=== PATIENT | male | born 1995 | race Caucasian/White ===

== ENCOUNTER 2016-12-03 02:37 | Inpatient (IN) | payer OTHER, BC ==
[~2016-12-03] VITALS: Ht 177.8 cm; Wt 102.5 kg
[2016-12-03 02:41] VITALS: BP 130/80; PULSE 80; RESP 16; TEMP 98.5; O2SAT 98
[2016-12-03] MEDS ORDERED: ceFAZolin 2 GM PREMIX 50 ML IV ONE (03:00)
[2016-12-03] MEDS ORDERED: ONDANSETRON HCL 4 MG/2 ML VIAL IV ONE (03:00)
[2016-12-03] MEDS ORDERED: SODIUM CHLOR 0.9% 1000 ML INJ 1,000 ML IV ONE ×2 (03:00→06:00)
[2016-12-03] MEDS ORDERED: MORPHINE SULFATE 4 MG/ML INJ IV PUSH ONE (03:00)
[2016-12-03] MEDS ORDERED: GENTAMICIN 80 MG PREMIX 100 ML IV ONE (03:00)
[2016-12-03] MEDS ORDERED: HYDROmorphone HCL PF 1 MG/ML VIAL IVS ONE ×3 (03:15→05:45)
[2016-12-03 03:19] LABS: AUTOMATED NEUTROPHIL # 5.9 TH/MM3 (1.8-7.7); BASOPHIL # 0.1 TH/MM3 (0-0.2); BASOPHIL % 0.5 % (0.0-2.0); EOSINOPHIL # 0.1 TH/MM3 (0-0.4); EOSINOPHIL % 1.1 % (0.0-4.0); HEMATOCRIT 43.9 % (39.0-51.0); HEMO FLAGS DIFF FINAL; LYMPH % 41.4 % (9.0-44.0); MEAN CELL VOLUME 88.2 FL (80.0-100.0); MEAN CORPUSCULAR HEMOGLOBIN 30.4 PG (27.0-34.0); MEAN CORPUSCULAR HGB CONC 34.4 % (32.0-36.0); MONO % 8.1 % (0.0-8.0); NEUT % 48.9 % (16.0-70.0); PLATELET COUNT 318 TH/MM3 (150-450); RED BLOOD COUNT 4.98 MIL/MM3 (4.50-5.90); WHITE BLOOD COUNT 12.2 TH/MM3 (4.0-11.0)
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
[2016-12-03 03:32] LABS: APTT (PATIENT) 23.2 SEC (24.3-30.1); PROTHROMBIN TIME - PATIENT 10.8 SEC (9.8-11.6)
[2016-12-03 03:45] LABS: ALKALINE PHOSPHATASE 93 U/L (45-117); TOTAL BILIRUBIN ADULT 0.3 MG/DL (0.2-1.0)
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
[2016-12-03 04:09] LABS: ALT (GPT) 70 U/L (9-52); ANION GAP 12 MEQ/L (5-15); AST (GOT) 78 U/L (15-39); BICARBONATE 20.8 MEQ/L (21.0-32.0); BLOOD UREA NITROGEN 12 MG/DL (7-18); CHLORIDE 106 MEQ/L (98-107); GLOMERULAR FILTRATION RATE 84 ML/MIN (>89); SODIUM (NA) 139 MEQ/L (136-145)
[2016-12-03 04:10] LABS: POTASSIUM 5.1 MEQ/L (3.5-5.1)
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
[2016-12-03] MEDS ORDERED: SODIUM CHLOR 0.9% 1000 ML INJ 1,000 ML IV SCH (06:00)
[2016-12-03] MEDS ORDERED: ONDANSETRON HCL 4 MG/2 ML VIAL IVP PRN (07:00)
[2016-12-03] MEDS ORDERED: BISACODYL 10 MG SUPP RECTAL PRN (07:00)
[2016-12-03] MEDS ORDERED: ACETAMINOPHEN 325 MG TAB PO PRN (07:00)
[2016-12-03] MEDS ORDERED: SODIUM CHLORIDE 0.9% FLUSH 10 ML FLUSH IV FLUSH PRN ×2 (07:00→12:30)
[2016-12-03 08:08] VITALS: BP 140/81; PULSE 93; RESP 18; O2SAT 97
[2016-12-03] MEDS: SODIUM CHLOR 0.9% 1000 ML INJ 1,000 ML IV SCH ×3 (08:08→21:43)
[2016-12-03] MEDS: HYDROmorphone HCL PF 1 MG/ML VIAL IV PRN ×2 (08:08→15:27)
[2016-12-03] MEDS: DOCUSATE SODIUM 50 MG/SENNA 8.6 MG TAB PO SCH ×2 (09:00→21:40)
[2016-12-03] MEDS ORDERED: SODIUM CHLORIDE 0.9% FLUSH 10 ML FLUSH IV FLUSH SCH (09:00)
[2016-12-03] MEDS ORDERED: ACETAMINOPHEN 1000 MG/100 ML VIAL IV ONE (09:29)
[2016-12-03] MEDS ORDERED: MIDAZOLAM HCL 2 MG/2 ML VIAL ONE (09:33)
[2016-12-03] MEDS ORDERED: PANTOPRAZOLE SODIUM 40 MG VIAL ONE (09:34)
[2016-12-03] MEDS ORDERED: NEOMYCIN/POLYMYXIN 1 ML G.U. IRRIGANT TOPICAL ONE (09:45)
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
[2016-12-03] MEDS ORDERED: HYDROmorphone HCL PF 2 MG/ML VIAL ONE (10:04)
[2016-12-03] MEDS ORDERED: LACTATED RINGER'S 1000 ML INJ 1,000 ML IV ONE (10:23)
[2016-12-03] MEDS ORDERED: ONDANSETRON HCL 4 MG/2 ML VIAL IV PUSH ONE (10:23)
[2016-12-03] MEDS ORDERED: PHENYLEPH/NS 1000 MCG/10 ML SYR IV ONE (10:23)
[2016-12-03] MEDS ORDERED: PROPOFOL 200 MG/20 ML AMP IV ONE (10:23)
[2016-12-03] MEDS ORDERED: HEPARIN SODIUM - SQ 10,000 UNITS/ML VIAL ONE (11:07)
[2016-12-03] MEDS: ceFAZolin 2 GM PREMIX 50 ML IV SCH ×2 (12:30→21:39)
[2016-12-03] MEDS ORDERED: fentaNYL CITRATE 250 MCG/5 ML AMP ONE (12:37)
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
[2016-12-03] MEDS: GENTAMICIN 80 MG PREMIX 100 ML IV SCH ×2 (13:30→22:21)
[2016-12-03] MEDS ORDERED: DO NOT ADM ANY ANTICOAGULANT DRUGS PRN (14:00)
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
[2016-12-03] MEDS ORDERED: *morphine SULFATE 8 MG/ML PERIprocedure ONLY ONE (14:17)
[2016-12-03 16:00] VITALS: BP 165/99; PULSE 102; RESP 16; TEMP 96.8; O2SAT 93
[2016-12-03 16:20] VITALS: O2SAT 94
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
[2016-12-03] MEDS ORDERED: NALOXONE HCL 0.4 MG/ML AMP IV PRN (17:00)
[2016-12-03] MEDS ORDERED: cloNIDine HCL 0.1 MG TAB PO PRN (17:15)
[2016-12-03] MEDS: MORPHINE SULFATE 30 MG/30 ML PCA IV SCH ×2 (17:58→22:17)
[2016-12-03 19:00] VITALS: BP 131/83; PULSE 115; RESP 18; TEMP 98.2; O2SAT 95
[2016-12-03] MEDS: SODIUM CHLORIDE 0.9% FLUSH 10 ML FLUSH IV FLUSH SCH (21:00)
[2016-12-03] MEDS: PCA - TOTAL MG MORPHINE DELIVERED PER SHIFT SCH (22:00)
[2016-12-04] VITALS (10 sets, daily range): BP systolic 127–140; BP diastolic 63–75; PULSE 102–118; RESP 16–18; TEMP 98–99; O2SAT 91–98
[2016-12-04] MEDS: ceFAZolin 2 GM PREMIX 50 ML IV SCH ×3 (05:04→21:03)
[2016-12-04] MEDS: GENTAMICIN 80 MG PREMIX 100 ML IV SCH ×3 (05:56→21:05)
[2016-12-04] MEDS: PCA - TOTAL MG MORPHINE DELIVERED PER SHIFT SCH ×3 (06:00→21:04)
[2016-12-04 06:59] LABS: AUTOMATED NEUTROPHIL # 5.8 TH/MM3 (1.8-7.7); BASOPHIL % 0.2 % (0.0-2.0); EOSINOPHIL % 0.1 % (0.0-4.0); HEMATOCRIT 41.8 % (39.0-51.0); HEMO FLAGS DIFF FINAL; LYMPH % 19.7 % (9.0-44.0); LYMPHOCYTE # 1.7 TH/MM3 (1.0-4.8); MEAN CELL VOLUME 89.2 FL (80.0-100.0); MEAN CORPUSCULAR HGB CONC 33.6 % (32.0-36.0); MONO % 12.2 % (0.0-8.0); NEUT % 67.8 % (16.0-70.0); PLATELET COUNT 260 TH/MM3 (150-450); RED BLOOD COUNT 4.69 MIL/MM3 (4.50-5.90); RED CELL DISTRIBUTION WIDTH 12.9 % (11.6-17.2); WHITE BLOOD COUNT 8.5 TH/MM3 (4.0-11.0)
[2016-12-04 07:31] LABS: ALKALINE PHOSPHATASE 91 U/L (45-117); ALT (GPT) 40 U/L (9-52); ANION GAP 6 MEQ/L (5-15); AST (GOT) 30 U/L (15-39); BICARBONATE 28.8 MEQ/L (21.0-32.0); BLOOD UREA NITROGEN 8 MG/DL (7-18); CHLORIDE 102 MEQ/L (98-107); GLOMERULAR FILTRATION RATE 96 ML/MIN (>89); SODIUM (NA) 137 MEQ/L (136-145); TOTAL BILIRUBIN ADULT 0.4 MG/DL (0.2-1.0)
[2016-12-04] MEDS: SODIUM CHLORIDE 0.9% FLUSH 10 ML FLUSH IV FLUSH SCH ×2 (08:01→21:00)
[2016-12-04] MEDS: DOCUSATE SODIUM 50 MG/SENNA 8.6 MG TAB PO SCH ×2 (08:04→21:03)
[2016-12-04] MEDS: MORPHINE SULFATE 30 MG/30 ML PCA IV SCH ×4 (08:04→22:40)
--- NOTE | 2016-12-04 08:57 | PD.POD ---
Subjective Pain score: 7 Remarks left foot pain is controlled by meds patient understands plan and progress. Past Med/Surg/Social History Social History Smoking Status: Never Smoker Objective Vital Signs Vital Signs Date Time Temp Pulse Resp B/P Pulse Ox O2 Delivery O2 Flow Rate FiO2 12/04/16 08:04 17 12/04/16 06:00 18 12/04/16 04:00 98.5 106 18 128/74 95 12/04/16 00:00 98.2 102 17 127/63 93 12/03/16 22:23 18 12/03/16 22:17 18 12/03/16 22:00 18 12/03/16 21:12 21 12/03/16 19:00 98.2 115 18 131/83 95 12/03/16 17:58 22 12/03/16 16:20 94 21 12/03/16 16:00 96.8 102 16 165/99 93 12/03/16 15:15 87 18 161/88 94 Nasal Cannula 3 12/03/16 13:15 94 18 151/90 94 Nasal Cannula 3 12/03/16 13:00 95 18 141/86 95 Nasal Cannula 3 12/03/16 12:45 93 18 135/74 94 Nasal Cannula 3 12/03/16 12:30 99.0 108 18 122/85 94 Nasal Cannula 3 Coded Allergies: No Known Allergies (Unverified , 12/03/16) Medications and IVs Administered Medications Medications (Trade) Dose Ordered Sig/Markel Route PRN Reason Start Time Stop Time Status Last Admin Dose Admin Sodium Chloride (NS 1000 ml Inj) 1,000 ml @ 100 mls/hr Q10H IV 12/03/16 08:00 12/03/16 21:43 Hydromorphone HCl (Dilaudid Pf Inj) 1 mg Q3H PRN IV Pain 6-10 12/03/16 07:00 Hold 12/03/16 15:27 Senna/Docusate Sodium 1 tab 1 tab BID PO 12/03/16 09:00 12/04/16 08:04 Cefazolin Sodium/ Dextrose 50 ml @ 100 mls/hr Q8H IV 12/03/16 13:00 12/04/16 05:04 Gentamicin Sulfate/Sodium Chloride (Gentamicin 80 Mg Premix) 100 ml @ 200 mls/hr Q8H IV 12/03/16 14:00 12/04/16 05:56 Morphine Sulfate (Morphine 1 Mg/ ml RAILWAY SIGNAL OPERATOR) 30 mg UNSCH IV 12/03/16 17:00 12/04/16 08:04 RAILWAY SIGNAL OPERATOR Dosage Infused (Pha) 1 Q8HR .XX 12/03/16 22:00 12/04/16 06:00 Other Results Laboratory Tests Test 12/03/16 12/04/16 03:06 06:42 White Blood Count 12.2 TH/MM3 8.5 TH/MM3 Red Blood Count 4.98 MIL/MM3 4.69 MIL/MM3 Hemoglobin 15.1 GM/DL 14.0 GM/DL Hematocrit 43.9 % 41.8 % Mean Corpuscular Volume 88.2 FL 89.2 FL Mean Corpuscular Hemoglobin 30.4 PG 30.0 PG Mean Corpuscular Hemoglobin 34.4 % 33.6 % Concent Red Cell Distribution Width 13.0 % 12.9 % Platelet Count 318 TH/MM3 260 TH/MM3 Mean Platelet Volume 7.1 FL 6.3 FL Neutrophils (%) (Auto) 48.9 % 67.8 % Lymphocytes (%) (Auto) 41.4 % 19.7 % Monocytes (%) (Auto) 8.1 % 12.2 % Eosinophils (%) (Auto) 1.1 % 0.1 % Basophils (%) (Auto) 0.5 % 0.2 % Neutrophils # (Auto) 5.9 TH/MM3 5.8 TH/MM3 Lymphocytes # (Auto) 5.0 TH/MM3 1.7 TH/MM3 Monocytes # (Auto) 1.0 TH/MM3 1.0 TH/MM3 Eosinophils # (Auto) 0.1 TH/MM3 0.0 TH/MM3 Basophils # (Auto) 0.1 TH/MM3 0.0 TH/MM3 CBC Comment DIFF FINAL DIFF FINAL Differential Comment Laboratory Tests Test 12/03/16 12/04/16 03:06 06:42 Sodium Level 139 MEQ/L 137 MEQ/L Potassium Level 5.1 MEQ/L 4.0 MEQ/L Chloride Level 106 MEQ/L 102 MEQ/L Carbon Dioxide Level 20.8 MEQ/L 28.8 MEQ/L Anion Gap 12 MEQ/L 6 MEQ/L Blood Urea Nitrogen 12 MG/DL 8 MG/DL Creatinine 1.12 MG/DL 0.99 MG/DL Estimat Glomerular Filtration 84 ML/MIN 96 ML/MIN Rate Random Glucose 108 MG/DL 113 MG/DL Calcium Level 8.3 MG/DL 8.6 MG/DL Total Bilirubin 0.3 MG/DL 0.4 MG/DL Aspartate Amino Transf 78 U/L 30 U/L (AST/SGOT) Alanine Aminotransferase 70 U/L 40 U/L (ALT/SGPT) Alkaline Phosphatase 93 U/L 91 U/L Total Protein 7.4 GM/DL 6.7 GM/DL Albumin 3.7 GM/DL 3.3 GM/DL Microbiology Date/Time Procedure Status Source Growth 12/03/16 12:30 Gram Stain Received Wound Foot Pending 12/03/16 12:30 Wound Culture Received Wound Foot Pending 12/03/16 12:30 Acid Fast Stain Received Wound Foot Pending 12/03/16 12:30 Mycobacterial Culture Received Wound Foot Pending 12/03/16 12:30 Fungal Smear Received Wound Foot Pending 12/03/16 12:30 Fungal Culture Received Wound Foot Pending Exam-Podiatry Remarks left foot ankle with splint bandage intact, wound vac in place, able to move toes, sensation intact to the top of the foot. Assessment & Plan A/P Left foot lisfranc midfoot open fracture dislocation with partial degloving. SP incision drainage debridement with helene of Ex Fix right foot, wound vac application. - 12/03 Plan for repeat above tomorrow. Reviewed plan with patient, must continue to washout and monitor healing. Foot salvage will be a long process. Continue IV ABX for now. Patient does not live here. Once foot is stable with forward progress and no signs of infection may possibly transfer care in 1-2 weeks, Jacqueline Mack is home. Hu Quevedo DPM Dec 04, 2016 08:57
--- NOTE | 2016-12-04 13:05 | HHI.PR ---
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 Objective Vitals Vital Signs Date Time Temp Pulse Resp B/P Pulse Ox O2 Delivery O2 Flow Rate FiO2 12/04/16 12:14 17 12/04/16 12:12 98 12/04/16 12:00 98.2 111 18 133/72 91 12/04/16 10:42 94 12/04/16 09:10 95 12/04/16 08:04 17 12/04/16 08:00 99.0 112 18 140/75 91 12/04/16 06:00 18 12/04/16 04:00 98.5 106 18 128/74 95 12/04/16 00:00 98.2 102 17 127/63 93 12/03/16 22:23 18 12/03/16 22:17 18 12/03/16 22:00 18 12/03/16 21:12 21 12/03/16 19:00 98.2 115 18 131/83 95 12/03/16 17:58 22 12/03/16 16:20 94 21 12/03/16 16:00 96.8 102 16 165/99 93 12/03/16 15:15 87 18 161/88 94 Nasal Cannula 3 12/03/16 13:15 94 18 151/90 94 Nasal Cannula 3 I/O 12/03/16 12/03/16 12/03/16 12/04/16 12/04/16 12/04/16 06:59 14:59 22:59 06:59 14:59 22:59 Intake Total 1300 ml 1251 ml 984 ml 494 ml Output Total 780 ml 1250 ml 875 ml 10 ml Balance 520 ml 1 ml 109 ml 484 ml Intake Oral 580 ml 480 ml IV Total 671 ml 504 ml 494 ml Other 1300 ml Output Urine Total 750 ml 1150 ml 800 ml Drainage Total 100 ml 75 ml 10 ml Estimated Blood Loss 30 ml Other 0 ml # Voids 1 1 # Bowel Movements 0 0 Result Diagram: 12/04/16 0642 12/04/16 0642 Imaging Last Impressions Lower Extremity CT 12/03/16 0000 Signed Impressions: Service Date/Time: Saturday, December 03, 2016 03:55 - CONCLUSION: 1. Multiple fractures, and extensive soft tissue injury with open fracture wound is at the dorsal aspect of the foot with associated foreign body retention. Ganesh Calvert MD Foot X-Ray 12/03/16 0000 Signed Impressions: Service Date/Time: Saturday, December 03, 2016 13:12 - CONCLUSION: Postsurgical changes. Rosa Andres MD Chest X-Ray 12/03/16 0000 Signed Impressions: Service Date/Time: Saturday, December 03, 2016 02:56 - CONCLUSION: No acute disease. Ganesh Calvert MD Objective Remarks GENERAL: NAD SKIN: Warm and dry. HEAD: Normocephalic. EYES: No scleral icterus. No injection or drainage. NECK: Supple, trachea midline. No JVD or lymphadenopathy. CARDIOVASCULAR: Regular rate and rhythm without murmurs, gallops, or rubs. RESPIRATORY: Breath sounds equal bilaterally. No accessory muscle use. GASTROINTESTINAL: Abdomen soft, non-tender, nondistended. MUSCULOSKELETAL: No cyanosis, or edema. Left lower extremity in cast with wound VAC in place BACK: Nontender without obvious deformity. No CVA tenderness. A/P Problem List: (1) Open fracture of left foot ICD Code: S92.902B Status: Acute Assessment and Plan 21 year-old man with Left foot open lisfranc fracture/dislocation with dorsal degloving injury and dorsalis pedis artery injury -s/p staged I&D with application of external fixation left foot and wound vac. - Continue on IV antibiotics, Cefazolin 2gm IV q8h and Gentamicin 80mg IV q8h. - Follow up on intraoperative wound cultures. 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
[2016-12-04] MEDS: SODIUM CHLOR 0.9% 1000 ML INJ 1,000 ML IV SCH ×2 (13:09→22:46)
[2016-12-05] VITALS (8 sets, daily range): BP systolic 108–156; BP diastolic 52–77; PULSE 58–122; RESP 16–20; TEMP 97–100.2; O2SAT 94–99
[2016-12-05] MEDS ORDERED: INSULIN HUMAN REGULAR 1,000 UNITS/10 ML VIAL SQ PRN (00:15)
[2016-12-05] MEDS ORDERED: METOPROLOL TARTRATE 25 MG TAB PO PRN (00:15)
[2016-12-05] MEDS ORDERED: CHLORHEXIDINE GLUCONATE 2 % 1 PACK (2 CLOTHS) TOPICAL PRN (00:15)
[2016-12-05] MEDS ORDERED: LACTATED RINGER'S 1000 ML IV PRN (00:15)
[2016-12-05] MEDS ORDERED: POVIDONE IODINE 5% (ANTISEPSIS KIT) 4 APPLICATIONS EACH NARE PRN (00:15)
[2016-12-05] MEDS ORDERED: SODIUM CHLORID 0.9% 500 ML IV PRN (00:15)
[2016-12-05] MEDS: ceFAZolin 2 GM PREMIX 50 ML IV SCH ×3 (04:24→20:55)
[2016-12-05] MEDS: GENTAMICIN 80 MG PREMIX 100 ML IV SCH ×3 (05:31→22:33)
[2016-12-05] MEDS: PCA - TOTAL MG MORPHINE DELIVERED PER SHIFT SCH ×3 (05:33→22:00)
[2016-12-05] MEDS: DOCUSATE SODIUM 50 MG/SENNA 8.6 MG TAB PO SCH ×2 (09:00→20:55)
[2016-12-05] MEDS: SODIUM CHLORIDE 0.9% FLUSH 10 ML FLUSH IV FLUSH SCH ×2 (09:00→20:55)
[2016-12-05] MEDS ORDERED: PROPOFOL 200 MG/20 ML AMP IV ONE (09:34)
[2016-12-05] MEDS ORDERED: LACTATED RINGER'S 1000 ML INJ 1,000 ML IV ONE (09:35)
[2016-12-05] MEDS ORDERED: ONDANSETRON HCL 4 MG/2 ML VIAL IV PUSH ONE (09:35)
[2016-12-05] MEDS: SODIUM CHLOR 0.9% 1000 ML INJ 1,000 ML IV SCH ×2 (09:49→20:55)
[2016-12-05] MEDS: MORPHINE SULFATE 30 MG/30 ML PCA IV SCH ×3 (09:52→22:50)
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
--- NOTE | 2016-12-05 12:50 | HHI.PR ---
Subjective Remarks Follow-up Left foot open lisfranc fracture/dislocation with dorsal degloving injury and dorsalis pedis artery injury 12/04/16-patient seen and examined, reports improvement of pain with S IRON WORKER, afebrile. 12/05/16-patient seen and examined, currently nothing by mouth. Tmax 100.9 at midnight over currently afebrile. Objective Vitals Vital Signs Date Time Temp Pulse Resp B/P Pulse Ox O2 Delivery O2 Flow Rate FiO2 12/05/16 09:52 17 12/05/16 08:00 98.2 101 20 125/63 95 12/05/16 05:33 17 12/05/16 04:22 99.9 116 17 108/52 96 12/05/16 00:00 100.2 122 17 128/56 94 12/04/16 22:40 17 12/04/16 21:04 18 12/04/16 20:00 98.0 118 16 129/69 95 12/04/16 18:12 17 12/04/16 17:49 95 21 12/04/16 16:00 98.4 116 18 127/70 95 12/04/16 13:07 17 I/O 12/04/16 12/04/16 12/04/16 12/05/16 12/05/16 12/05/16 06:59 14:59 22:59 06:59 14:59 22:59 Intake Total 984 ml 1694 ml 480 ml 480 ml Output Total 875 ml 1560 ml 820 ml 830 ml 1900 ml Balance 109 ml 134 ml -340 ml -350 ml -1900 ml Intake Oral 480 ml 1200 ml 480 ml 480 ml IV Total 504 ml 494 ml Output Urine Total 800 ml 1550 ml 800 ml 800 ml 1900 ml Drainage Total 75 ml 10 ml 20 ml 30 ml # Bowel Movements 0 0 0 Result Diagram: 12/04/16 0642 12/04/16641 Objective Remarks GENERAL: NAD SKIN: Warm and dry. HEAD: Normocephalic. EYES: No scleral icterus. No injection or drainage. NECK: Supple, trachea midline. No JVD or lymphadenopathy. CARDIOVASCULAR: Regular rate and rhythm without murmurs, gallops, or rubs. RESPIRATORY: Breath sounds equal bilaterally. No accessory muscle use. GASTROINTESTINAL: Abdomen soft, non-tender, nondistended. MUSCULOSKELETAL: No cyanosis, or edema. Left lower extremity in cast with wound VAC in place BACK: Nontender without obvious deformity. No CVA tenderness. Procedures s/p staged I&D with application of external fixation left foot and wound vac. A/P Problem List: (1) Open fracture of left foot ICD Code: S92.902B Status: Acute Assessment and Plan 21 year-old man with Left foot open lisfranc fracture/dislocation with dorsal degloving injury and dorsalis pedis artery injury -s/p staged I&D with application of external fixation left foot and wound vac. - Wound culture positive for bacillus species not Anthracis; Continue on IV antibiotics, Cefazolin 2gm IV q8h and Gentamicin 80mg IV q8h. - Follow up on intraoperative wound cultures. - NWB left lower extremity - Pain management with Morphine S IRON WORKER -Plan for incision drainage debridement with helene of Ex Fix right foot today 12/05/16 Leukocytosis - suspect stress reaction DVT prophylaxis - LISA/Lee Davila MD Dec 05, 2016 12:50
[2016-12-05] MEDS ORDERED: BUPIVACAINE HCL PF 0.5% 30 ML VIAL ONE (14:43)
[2016-12-05] MEDS ORDERED: BUPIVACAINE HCL PF 0.25% 30 ML VIAL ONE (14:48)
[2016-12-05] MEDS ORDERED: ACETAMINOPHEN 1000 MG/100 ML VIAL IV ONE (15:05)
[2016-12-05] MEDS ORDERED: GENTAMICIN SULFATE 80 MG/2 ML VIAL IRRIGATION ONE (15:08)
--- NOTE | 2016-12-05 16:15 | HHI.PR ---
Immediate Post Op Note Procedure Date: Dec 05, 2016 Pre Op Diagnosis: left foot open fracture dislocation degloving injury Post Op Diagnosis: same Surgeon: Hu Ochoa Resident Care Spec(s): scrub Procedure: Incision drainage debridement application of wound vac and modification of ex fix- mono rail Findings: see op Complications: none Specimen(s) removed: deep cx bone x2 Estimated blood loss: less than 100 mL Anesthesia: General, Local Drains: Other Fluids: see anesthesia Patient to: PACU Patient Condition: Fair Implant/Devices: SEE IMPLANT LOG (if applicable) Date/Time of Procedure: SEE SURGICAL CARE RECORD Hu Ochoa DPM Dec 05, 2016 16:15
[2016-12-05] MEDS ORDERED: fentaNYL CITRATE 250 MCG/5 ML AMP ONE (16:22)
[2016-12-05] MEDS ORDERED: MIDAZOLAM HCL 2 MG/2 ML VIAL ONE (16:22)
--- NOTE | 2016-12-05 23:03 | MP ---
cc: AUBREY GALAN [facility] DATE OF SURGERY: 12/05/2016 PREOPERATIVE DIAGNOSIS: Left foot open fracture dislocation Lisfranc's joint midfoot with partial degloving injury. POSTOPERATIVE DIAGNOSIS Left foot open fracture dislocation Lisfranc's joint midfoot with partial degloving injury. PROCEDURES PERFORMED Incision and drainage, debridement, application of wound Vac and modification of external fixator. COMPLICATIONS None SPECIMEN Deep bone culture x2 Lisfranc's joint. ESTIMATED BLOOD LOSS 100 mL ANESTHESIA General with local 20 cc of 0.25% Marcaine plain ankle block performed. PLAN OF ACTIVITY: PACU and then return to floor. JUSTIFICATION FOR PROCEDURE: The patient is a 21 year-old male, open fracture dislocation, jeep injury. The plan is to attempt to keep the foot viable and clean of infection and accelerate granulation tissue in preparation for possible skin graft and more definitive orthopedic operation. At this point in time it is too soon for any definitive operation. PROCEDURE IN DETAIL: Under mild sedation the patient was brought to the operating room, placed on the operating room table in supine position. Following the induction of general anesthesia, the left foot was then examined. The Pendabar mini external fixator was then prepped upon removing the wound Vac exposing the extensor tendons and Lisfranc's joint down to periosteum. It is an expansile degloving injury with an absent dorsal neurovascular structures. Most of the wound appeared to be viable with minimal contamination, no obvious odor, no obvious khloe purulence. The distal edges were starting to demarcate. There is obvious signs of venous congestion. The toes remained viable as well as the ankle remains viable. Utilizing pulse lavage, curet and rongeur, periosteum and any foreign body which was minimal was removed. There were black small pieces, I assume this was paint from the jeep. Two cultures were taken at the periosteal level, one medial, one lateral, at the Lisfranc's joint. The pin to bar mini external fixator was disarticulated keeping the stabilization pins. They were in the first metatarsal as well as the medial cuneiform and the cuboid. At this time a wound Vac was then placed under adequate sealant section and the external fixator was then reapplied under appropriate tension stabilized orthopedic injury. A well padded posterior splint was then applied. Before starting the procedure, an anterior ankle block took place utilizing 20 cc of 0.25% Marcaine plane. The patient was extubated uneventfully, and will return to the floor. Will continue to monitor the wound, possible washout within the next 2-3 days. ROSY Riley /4:19 PM /10:55 PM CRISTOFER
[2016-12-06] VITALS (8 sets, daily range): BP systolic 107–121; BP diastolic 61–73; PULSE 63–87; RESP 16–18; TEMP 96.3–97.5; O2SAT 93–100
[2016-12-06] MEDS: ACETAMINOPHEN/HYDROcodone 325 MG/5 MG TAB PO PRN ×4 (00:28→23:50)
[2016-12-06] MEDS: ceFAZolin 2 GM PREMIX 50 ML IV SCH ×3 (04:34→21:26)
[2016-12-06] MEDS: MORPHINE SULFATE 30 MG/30 ML PCA IV SCH ×4 (04:38→21:32)
[2016-12-06] MEDS: PCA - TOTAL MG MORPHINE DELIVERED PER SHIFT SCH ×3 (05:27→21:26)
[2016-12-06] MEDS: SODIUM CHLOR 0.9% 1000 ML INJ 1,000 ML IV SCH ×2 (05:32→16:00)
[2016-12-06] MEDS: GENTAMICIN 80 MG PREMIX 100 ML IV SCH ×3 (05:50→21:26)
--- NOTE | 2016-12-06 07:48 | PD.POD ---
Subjective Pain score: 7 Remarks left foot pain is controlled by meds. Past Med/Surg/Social History Social History Smoking Status: Never Smoker Objective Vital Signs Vital Signs Date Time Temp Pulse Resp B/P Pulse Ox O2 Delivery O2 Flow Rate FiO2 12/06/16 05:27 17 12/06/16 04:38 17 12/06/16 04:14 96.8 87 16 116/63 96 12/06/16 00:19 97.5 85 16 115/64 97 12/05/16 22:50 17 12/05/16 22:00 17 12/05/16 20:38 95 21 12/05/16 19:30 97.9 100 16 120/64 97 12/05/16 18:24 18 12/05/16 17:55 97.0 95 20 121/69 99 12/05/16 17:40 Nasal Cannula 2.00 12/05/16 17:15 98.5 82 12 122/73 96 Nasal Cannula 2 12/05/16 17:00 84 12 123/62 96 Nasal Cannula 2 12/05/16 16:45 86 12 126/65 96 Nasal Cannula 2 12/05/16 16:30 92 12 126/63 96 Nasal Cannula 2 12/05/16 16:15 98.5 92 12 132/70 96 Nasal Cannula 2 12/05/16 12:59 17 12/05/16 12:50 94 12/05/16 12:00 97.7 100 20 110/63 96 12/05/16 09:52 17 12/05/16 08:00 98.2 101 20 125/63 95 Coded Allergies: No Known Allergies (Unverified , 12/03/16) Medications and IVs Administered Medications Medications (Trade) Dose Ordered Sig/Markel Route PRN Reason Start Time Stop Time Status Last Admin Dose Admin Sodium Chloride (NS 1000 ml Inj) 1,000 ml @ 100 mls/hr Q10H IV 12/03/16 08:00 12/05/16 20:55 Acetaminophen/ Hydrocodone Bitart ([place] 5-325 Mg) 1 tab Q4H PRN PO PAIN SCALE 3 TO 5 12/03/16 07:00 12/06/16 04:35 Hydromorphone HCl (Dilaudid Pf Inj) 1 mg Q3H PRN IV Pain 6-10 12/03/16 07:00 Hold 12/03/16 15:27 Senna/Docusate Sodium 1 tab 1 tab BID PO 12/03/16 09:00 12/05/16 20:55 Cefazolin Sodium/ Dextrose 50 ml @ 100 mls/hr Q8H IV 12/03/16 13:00 12/06/16 04:34 Gentamicin Sulfate/Sodium Chloride (Gentamicin 80 Mg Premix) 100 ml @ 200 mls/hr Q8H IV 12/03/16 14:00 12/06/16 05:50 Morphine Sulfate (Morphine 1 Mg/ ml ELECTRONICS TEACHER) 30 mg UNSCH IV 12/03/16 17:00 12/06/16 04:38 ELECTRONICS TEACHER Dosage Infused (Pha) 1 Q8HR .XX 12/03/16 22:00 12/06/16 05:27 Other Results Microbiology Date/Time Procedure Status Source Growth 12/03/16 12:30 Gram Stain - Final Complete Wound Foot 12/03/16 12:30 Wound Culture - Final Complete Bacillus Species Not Anthracis 12/03/16 12:30 Acid Fast Stain - Final Resulted Wound Foot NO ACID FAST BACILLI SEEN 12/03/16 12:30 Mycobacterial Culture Resulted Wound Foot Pending 12/03/16 12:30 Fungal Smear - Final Resulted Wound Foot NO FUNGAL ELEMENTS SEEN. 12/03/16 12:30 Fungal Culture Resulted Wound Foot Pending 12/05/16 15:18 Gram Stain Received Wound Foot Pending 12/05/16 15:18 Wound Culture Received Wound Foot Pending 12/05/16 15:18 Acid Fast Stain Received Wound Foot Pending 12/05/16 15:18 Mycobacterial Culture Received Wound Foot Pending 12/05/16 15:18 Fungal Smear Received Wound Foot Pending 12/05/16 15:18 Fungal Culture Received Wound Foot Pending 12/05/16 15:18 Acid Fast Stain Received Wound Foot Pending 12/05/16 15:18 Mycobacterial Culture Received Wound Foot Pending 12/05/16 15:18 Fungal Smear Received Wound Foot Pending 12/05/16 15:18 Fungal Culture Received Wound Foot Pending 12/05/16 16:29 Gram Stain Received Wound Foot Pending 12/05/16 16:29 Wound Culture Received Wound Foot Pending Physical Exam Remarks left foot ankle with splint bandage intact, wound vac in place, able to move toes, sensation intact to the top of the foot. Assessment & Plan A/P Left foot lisfranc midfoot open fracture dislocation with partial degloving. SP incision drainage debridement with helene of Ex Fix right foot, wound vac application. - 12/03, 12/05 Plan for repeat above sunday. Reviewed plan with patient, must continue to washout and monitor healing. Foot salvage will be a long process. Must have clear cultures. Continue IV ABX for now, initial surgical Cx is positive- may need ID consult. Hu Quevedo DPM Dec 06, 2016 07:48
[2016-12-06] MEDS: DOCUSATE SODIUM 50 MG/SENNA 8.6 MG TAB PO SCH ×2 (09:39→21:25)
[2016-12-06] MEDS: SODIUM CHLORIDE 0.9% FLUSH 10 ML FLUSH IV FLUSH SCH ×2 (09:49→21:26)
--- NOTE | 2016-12-06 12:10 | HHI.PR ---
Subjective Remarks Left foot pain is controlled denies fevers/chills denies cp/sob Objective Vitals Vital Signs Date Time Temp Pulse Resp B/P Pulse Ox O2 Delivery O2 Flow Rate FiO2 12/06/16 09:56 97 21 12/06/16 09:46 16 12/06/16 08:00 96.5 84 18 113/61 97 12/06/16 05:27 17 12/06/16 04:38 17 12/06/16 04:14 96.8 87 16 116/63 96 12/06/16 00:19 97.5 85 16 115/64 97 12/05/16 22:50 17 12/05/16 22:00 17 12/05/16 20:38 95 21 12/05/16 19:30 97.9 100 16 120/64 97 12/05/16 18:24 18 12/05/16 17:55 97.0 95 20 121/69 99 12/05/16 17:40 Nasal Cannula 2.00 12/05/16 17:15 98.5 82 12 122/73 96 Nasal Cannula 2 12/05/16 17:00 84 12 123/62 96 Nasal Cannula 2 12/05/16 16:45 86 12 126/65 96 Nasal Cannula 2 12/05/16 16:30 92 12 126/63 96 Nasal Cannula 2 12/05/16 16:15 98.5 92 12 132/70 96 Nasal Cannula 2 12/05/16 12:59 17 12/05/16 12:50 94 I/O 12/05/16 12/05/16 12/05/16 12/06/16 12/06/16 12/06/16 06:59 14:59 22:59 06:59 14:59 22:59 Intake Total 480 ml 1040 ml 1920 ml 720 ml Output Total 830 ml 2920 ml 1520 ml 1205 ml Balance -350 ml -1880 ml 400 ml -485 ml Intake Oral 480 ml 720 ml 720 ml IV Total 1040 ml Other 1200 ml Output Urine Total 800 ml 2900 ml 1400 ml 1200 ml Drainage Total 30 ml 20 ml 20 ml 5 ml Estimated Blood Loss 100 ml # Bowel Movements 0 Result Diagram: 12/04/16 0642 12/04/16 0642 Imaging Last Impressions Lower Extremity CT 12/03/16 0000 Signed Impressions: Service Date/Time: Saturday, December 03, 2016 03:55 - CONCLUSION: 1. Multiple fractures, and extensive soft tissue injury with open fracture wound is at the dorsal aspect of the foot with associated foreign body retention. Ganesh Calvert MD Foot X-Ray 12/03/16 0000 Signed Impressions: Service Date/Time: Saturday, December 03, 2016 13:12 - CONCLUSION: Postsurgical changes. Rosa Andres MD Chest X-Ray 12/03/16 0000 Signed Impressions: Service Date/Time: Saturday, December 03, 2016 02:56 - CONCLUSION: No acute disease. Ganesh Calvert MD Objective Remarks GENERAL: NAD SKIN: Warm and dry. HEAD: Normocephalic. EYES: No scleral icterus. No injection or drainage. NECK: Supple, trachea midline. No JVD or lymphadenopathy. CARDIOVASCULAR: Regular rate and rhythm without murmurs, gallops, or rubs. RESPIRATORY: Breath sounds equal bilaterally. No accessory muscle use. GASTROINTESTINAL: Abdomen soft, non-tender, nondistended. MUSCULOSKELETAL: No cyanosis, or edema. Left lower extremity in cast with wound VAC in place BACK: Nontender without obvious deformity. No CVA tenderness. Procedures s/p staged I&D with application of external fixation left foot and wound vac. Medications and IVs Current Medications Medications (Trade) Dose Ordered Sig/Markel Route Start Time Stop Time Status Last Admin (NS 1000 ml Inj) 1,000 ml @ 100 mls/hr Q10H IV 12/03/16 08:00 12/05/16 20:55 (Zofran Inj) 4 mg Q6H PRN IVP 12/03/16 07:00 (Tylenol) 650 mg Q6H PRN PO 12/03/16 07:00 ([place] 5-325 Mg) 1 tab Q4H PRN PO 12/03/16 07:00 12/06/16 13:09 (Dilaudid Pf Inj) 1 mg Q3H PRN IV 12/03/16 07:00 Hold 12/03/16 15:27 (Quyen-Colace) 1 tab BID PO 12/03/16 09:00 12/06/16 21:25 (Milk Of Magnesia Liq) 30 ml Q12H PRN PO 12/03/16 07:00 (Senokot) 17.2 mg Q12H PRN PO 12/03/16 07:00 (Dulcolax Supp) 10 mg DAILY PRN RECTAL 12/03/16 07:00 (Lactulose Liq) 30 ml DAILY PRN PO 12/03/16 07:00 (NS Flush) 2 ml UNSCH PRN IV FLUSH 12/03/16 12:30 Sodium Chloride 2 ml 2 ml BID IV FLUSH 12/03/16 21:00 Cefazolin Sodium/ Dextrose 50 ml @ 100 mls/hr Q8H IV 12/03/16 13:00 12/06/16 21:26 (Gentamicin 80 Mg Premix) 100 ml @ 200 mls/hr Q8H IV 12/03/16 14:00 12/06/16 21:26 (Narcan Inj) 0.4 mg UNSCH PRN IV 12/03/16 17:00 (Morphine 1 Mg/ ml TUBE OPERATOR) 30 mg UNSCH IV 12/03/16 17:00 12/06/16 21:32 TUBE OPERATOR Dosage Infused (Pha) 1 Q8HR .XX 12/03/16 22:00 12/06/16 21:26 Clonidine 0.1 mg 0.1 mg Q6H PRN PO 12/03/16 17:15 Lactated Ringer's 1,000 ml @ 30 mls/hr Q24H PRN IV 12/05/16 00:15 12/08/16 00:14 (NS 500 ml Inj) 500 ml @ 30 mls/hr [id number] PRN IV 12/05/16 00:15 12/08/16 00:14 A/P Problem List: (1) Open fracture of left foot ICD Code: S92.902B Status: Acute Assessment and Plan 21 year-old man with Left foot open lisfranc fracture/dislocation with dorsal degloving injury and dorsalis pedis artery injury -s/p staged I&D with application of external fixation left foot and wound vac. - Wound culture positive for bacillus species not Anthracis; Continue on IV antibiotics, Cefazolin 2gm IV q8h and Gentamicin 80mg IV q8h. - Follow up on intraoperative wound cultures. - NWB left lower extremity - Pain management with Morphine TUBE OPERATOR -The patient is status post incision and drainage, debridement, occasional one pack a modification of external fixator on 12/05/16. Possible washout within next 2-3 days. -Initial one culture is growing bacillus species. I will consult infectious disease. Leukocytosis -Likely due to stress. WBC normal today. No signs of infection DVT prophylaxis - SCD/YELENA hose Discharge Planning Continue to monitor in the medical floor. Mundo Hartmann MD Dec 06, 2016 12:10
[2016-12-07] MEDS: SODIUM CHLOR 0.9% 1000 ML INJ 1,000 ML IV SCH ×3 (02:00→22:33)
[2016-12-07] MEDS: GENTAMICIN 80 MG PREMIX 100 ML IV SCH ×2 (04:14→14:12)
[2016-12-07] MEDS: ceFAZolin 2 GM PREMIX 50 ML IV SCH ×3 (04:14→20:24)
[2016-12-07] MEDS: ACETAMINOPHEN/HYDROcodone 325 MG/5 MG TAB PO PRN (04:14)
[2016-12-07 05:21] VITALS: BP 119/60; PULSE 77; RESP 12; TEMP 97.1; O2SAT 94
[2016-12-07] MEDS: PCA - TOTAL MG MORPHINE DELIVERED PER SHIFT SCH ×3 (05:27→21:02)
[2016-12-07] MEDS: MAGNESIUM HYDROXIDE SUSP 30 ML CUP PO PRN (06:18)
[2016-12-07 06:21] LABS: HEMATOCRIT 39.3 % (39.0-51.0); MEAN CORPUSCULAR HEMOGLOBIN 29.9 PG (27.0-34.0); MEAN CORPUSCULAR HGB CONC 33.6 % (32.0-36.0); PLATELET COUNT 290 TH/MM3 (150-450); RED BLOOD COUNT 4.42 MIL/MM3 (4.50-5.90); RED CELL DISTRIBUTION WIDTH 12.7 % (11.6-17.2); REVIEW FLAG FINAL; WHITE BLOOD COUNT 5.9 TH/MM3 (4.0-11.0)
[2016-12-07 06:49] LABS: BICARBONATE 29.4 MEQ/L (21.0-32.0); POTASSIUM 4.3 MEQ/L (3.5-5.1)
[2016-12-07 08:00] VITALS: BP 102/61; PULSE 69; RESP 17; TEMP 97; O2SAT 98
[2016-12-07] MEDS: SODIUM CHLORIDE 0.9% FLUSH 10 ML FLUSH IV FLUSH SCH ×2 (09:00→20:24)
[2016-12-07] MEDS: MORPHINE SULFATE 30 MG/30 ML PCA IV SCH ×2 (09:21→20:35)
[2016-12-07] MEDS: DOCUSATE SODIUM 50 MG/SENNA 8.6 MG TAB PO SCH ×2 (09:22→20:24)
[2016-12-07 12:00] VITALS: BP 128/78; PULSE 81; RESP 18; TEMP 96.9; O2SAT 94
--- NOTE | 2016-12-07 14:57 | HHI.PR ---
Subjective Remarks pain controlled denies cp/sob denies cough denies cough, fevers, chills stable vital signs Objective Vitals Vital Signs Date Time Temp Pulse Resp B/P Pulse Ox O2 Delivery O2 Flow Rate FiO2 12/07/16 12:00 96.9 81 18 128/78 94 12/07/16 09:21 18 12/07/16 08:00 97.0 69 17 102/61 98 12/07/16 05:27 16 12/07/16 05:21 97.1 77 12 119/60 94 12/06/16 23:00 96.5 63 16 107/63 99 12/06/16 22:00 97.0 76 16 109/68 99 12/06/16 21:32 16 12/06/16 21:26 16 12/06/16 16:22 16 12/06/16 16:00 96.3 83 18 118/68 99 I/O 12/06/16 12/06/16 12/06/16 12/07/16 12/07/16 12/07/16 07:00 15:00 23:00 07:00 15:00 23:00 Intake Total 720 ml 720 ml 800 ml Output Total 1205 ml 1800 ml 75 ml 2700 ml 900 ml Balance -485 ml -1080 ml -75 ml -1900 ml -900 ml Intake Oral 720 ml 720 ml 800 ml Output Urine Total 1200 ml 1800 ml 2675 ml 900 ml Drainage Total 5 ml 75 ml 25 ml # Bowel Movements 0 Result Diagram: 12/07/16 0610 12/07/16 0610 Imaging Last Impressions Lower Extremity CT 12/03/16 0000 Signed Impressions: Service Date/Time: Saturday, December 03, 2016 03:55 - CONCLUSION: 1. Multiple fractures, and extensive soft tissue injury with open fracture wound is at the dorsal aspect of the foot with associated foreign body retention. Ganesh Calvert MD Foot X-Ray 12/03/16 0000 Signed Impressions: Service Date/Time: Saturday, December 03, 2016 13:12 - CONCLUSION: Postsurgical changes. Rosa Andres MD Chest X-Ray 12/03/16 0000 Signed Impressions: Service Date/Time: Saturday, December 03, 2016 02:56 - CONCLUSION: No acute disease. Ganesh Calvert MD Objective Remarks GENERAL: NAD SKIN: Warm and dry. HEAD: Normocephalic. EYES: No scleral icterus. No injection or drainage. NECK: Supple, trachea midline. No JVD or lymphadenopathy. CARDIOVASCULAR: Regular rate and rhythm without murmurs, gallops, or rubs. RESPIRATORY: Breath sounds equal bilaterally. No accessory muscle use. GASTROINTESTINAL: Abdomen soft, non-tender, nondistended. MUSCULOSKELETAL: No cyanosis, or edema. Left lower extremity in cast with wound VAC in place BACK: Nontender without obvious deformity. No CVA tenderness. Procedures s/p staged I&D with application of external fixation left foot and wound vac. Medications and IVs Current Medications Medications (Trade) Dose Ordered Sig/Markel Route Start Time Stop Time Status Last Admin (NS 1000 ml Inj) 1,000 ml @ 100 mls/hr Q10H IV 12/03/16 08:00 12/05/16 20:55 (Zofran Inj) 4 mg Q6H PRN IVP 12/03/16 07:00 (Tylenol) 650 mg Q6H PRN PO 12/03/16 07:00 ([place] 5-325 Mg) 1 tab Q4H PRN PO 12/03/16 07:00 12/07/16 04:14 (Dilaudid Pf Inj) 1 mg Q3H PRN IV 12/03/16 07:00 Hold 12/03/16 15:27 (Quyen-Colace) 1 tab BID PO 12/03/16 09:00 12/07/16 09:22 (Milk Of Magnesia Liq) 30 ml Q12H PRN PO 12/03/16 07:00 12/07/16 06:18 (Senokot) 17.2 mg Q12H PRN PO 12/03/16 07:00 (Dulcolax Supp) 10 mg DAILY PRN RECTAL 12/03/16 07:00 (Lactulose Liq) 30 ml DAILY PRN PO 12/03/16 07:00 (NS Flush) 2 ml UNSCH PRN IV FLUSH 12/03/16 12:30 Sodium Chloride 2 ml 2 ml BID IV FLUSH 12/03/16 21:00 (Ancef 2 Gm Premix) 50 ml @ 100 mls/hr Q8H IV 12/03/16 13:00 12/07/16 13:20 (Narcan Inj) 0.4 mg UNSCH PRN IV 12/03/16 17:00 (Morphine 1 Mg/ ml ADULT DAYCARE COORDINATOR) 30 mg UNSCH IV 12/03/16 17:00 12/07/16 09:21 ADULT DAYCARE COORDINATOR Dosage Infused (Pha) 1 Q8HR .XX 12/03/16 22:00 12/07/16 14:00 Clonidine 0.1 mg 0.1 mg Q6H PRN PO 12/03/16 17:15 Lactated Ringer's 1,000 ml @ 30 mls/hr Q24H PRN IV 12/05/16 00:15 12/08/16 00:14 (NS 500 ml Inj) 500 ml @ 30 mls/hr [id number] PRN IV 12/05/16 00:15 12/08/16 00:14 Urinary Catheter: No Vascular Central Line Catheter: No A/P Problem List: (1) Open fracture of left foot ICD Code: S92.902B Status: Acute Assessment and Plan 21 year-old man with Left foot open lisfranc fracture/dislocation with dorsal degloving injury and dorsalis pedis artery injury -s/p staged I&D with application of external fixation left foot and wound vac. - Wound culture positive for bacillus species not Anthracis; Continue on IV antibiotics, Cefazolin 2gm IV q8h and Gentamicin 80mg IV q8h. - Follow up on intraoperative wound cultures. - NWB left lower extremity - Pain management with Morphine ADULT DAYCARE COORDINATOR -SP incision drainage debridement with helene of Ex Fix right foot, wound vac application. - 12/03, 12/05 -Initial wound culture is growing bacillus species. ID consulted - recommendations pending. - Discussed case with podiatry - Dr Ochoa for I&D in am Leukocytosis -Likely due to stress. Resolved. DVT prophylaxis - SCD/YELENA, Will place on Lovenox SQ - Caprini score of 8 with a VTE risk of 6 % Discharge Planning Continue to monitor in the medical floor. Mundo Hartmann MD Dec 07, 2016 14:57
[2016-12-07 16:00] VITALS: BP 127/72; PULSE 76; RESP 18; TEMP 98.1; O2SAT 95
--- NOTE | 2016-12-07 18:20 | PD.POD ---
Subjective Pain score: 7 Remarks left foot pain is controlled by meds. Past Med/Surg/Social History Social History Smoking Status: Never Smoker Objective Vital Signs Vital Signs Date Time Temp Pulse Resp B/P Pulse Ox O2 Delivery O2 Flow Rate FiO2 12/07/16 16:00 98.1 76 18 127/72 95 12/07/16 12:00 96.9 81 18 128/78 94 12/07/16 09:21 18 12/07/16 08:00 97.0 69 17 102/61 98 12/07/16 05:27 16 12/07/16 05:21 97.1 77 12 119/60 94 12/06/16 23:00 96.5 63 16 107/63 99 12/06/16 22:00 97.0 76 16 109/68 99 12/06/16 21:32 16 12/06/16 21:26 16 Coded Allergies: No Known Allergies (Unverified , 12/03/16) Medications and IVs Administered Medications Medications (Trade) Dose Ordered Sig/Markel Route PRN Reason Start Time Stop Time Status Last Admin Dose Admin Sodium Chloride (NS 1000 ml Inj) 1,000 ml @ 100 mls/hr Q10H IV 12/03/16 08:00 12/05/16 20:55 Acetaminophen/ Hydrocodone Bitart ([place] 5-325 Mg) 1 tab Q4H PRN PO PAIN SCALE 3 TO 5 12/03/16 07:00 12/07/16 04:14 Hydromorphone HCl (Dilaudid Pf Inj) 1 mg Q3H PRN IV Pain 6-10 12/03/16 07:00 Hold 12/03/16 15:27 Senna/Docusate Sodium (Quyen-Colace) 1 tab BID PO 12/03/16 09:00 12/07/16 09:22 Magnesium Hydroxide 30 ml 30 ml Q12H PRN PO MILD - MODERATE CONSTIPATION 12/03/16 07:00 12/07/16 06:18 Cefazolin Sodium/ Dextrose (Ancef 2 Gm Premix) 50 ml @ 100 mls/hr Q8H IV 12/03/16 13:00 12/07/16 13:20 Morphine Sulfate (Morphine 1 Mg/ ml ATTENDANT CHILD ACTIVITY) 30 mg UNSCH IV 12/03/16 17:00 12/07/16 09:21 ATTENDANT CHILD ACTIVITY Dosage Infused (Pha) 1 Q8HR .XX 12/03/16 22:00 12/07/16 14:00 Other Results Laboratory Tests Test 12/07/16 06:10 White Blood Count 5.9 TH/MM3 Red Blood Count 4.42 MIL/MM3 Hemoglobin 13.2 GM/DL Hematocrit 39.3 % Mean Corpuscular Volume 89.0 FL Mean Corpuscular Hemoglobin 29.9 PG Mean Corpuscular Hemoglobin 33.6 % Concent Red Cell Distribution Width 12.7 % Platelet Count 290 TH/MM3 Mean Platelet Volume 6.6 FL Laboratory Tests Test 12/07/16 06:10 Sodium Level 136 MEQ/L Potassium Level 4.3 MEQ/L Chloride Level 100 MEQ/L Carbon Dioxide Level 29.4 MEQ/L Anion Gap 7 MEQ/L Blood Urea Nitrogen 12 MG/DL Creatinine 1.00 MG/DL Estimat Glomerular Filtration 95 ML/MIN Rate Random Glucose 102 MG/DL Calcium Level 8.9 MG/DL Microbiology Date/Time Procedure Status Source Growth 12/05/16 15:18 Gram Stain - Final Resulted Wound Foot 12/05/16 15:18 Wound Culture - Preliminary Resulted Wound Foot NO GROWTH IN 48 HOURS. 12/05/16 15:18 Acid Fast Stain - Final Resulted Wound Foot NO ACID FAST BACILLI SEEN 12/05/16 15:18 Mycobacterial Culture Resulted Wound Foot Pending 12/05/16 15:18 Fungal Smear - Final Resulted Wound Foot NO FUNGAL ELEMENTS SEEN. 12/05/16 15:18 Fungal Culture Resulted Wound Foot Pending 12/05/16 15:18 Gram Stain - Final Resulted Wound Foot 12/05/16 15:18 Wound Culture - Preliminary Resulted Wound Foot NO GROWTH IN 48 HOURS. 12/05/16 15:18 Acid Fast Stain - Final Resulted Wound Foot NO ACID FAST BACILLI SEEN 12/05/16 15:18 Mycobacterial Culture Resulted Wound Foot Pending 12/05/16 15:18 Fungal Smear - Final Resulted Wound Foot NO FUNGAL ELEMENTS SEEN. 12/05/16 15:18 Fungal Culture Resulted Wound Foot Pending 12/05/16 16:29 Gram Stain Received Wound Foot Pending 12/05/16 16:29 Wound Culture Received Wound Foot Pending Physical Exam Remarks left foot ankle with splint bandage intact, wound vac in place, able to move toes, sensation intact to the top of the foot. Assessment & Plan A/P Left foot lisfranc midfoot open fracture dislocation with partial degloving. SP incision drainage debridement with helene of Ex Fix right foot, wound vac application. - 12/03, 12/05 Plan for repeat above sunday. Reviewed plan with patient, must continue to washout and monitor healing. Seen bedside with ID. uH Quevedo DPM Dec 07, 2016 18:20
[2016-12-07] MEDS: ENOXAPARIN SODIUM 40 MG/0.4 ML SYRINGE SQ SCH (19:50)
[2016-12-07 20:00] VITALS: BP 113/68; PULSE 74; RESP 16; TEMP 98.3; O2SAT 95
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
[2016-12-08] VITALS: BP 107/61; PULSE 86; RESP 16; TEMP 97.4; O2SAT 96
[2016-12-08] MEDS: ACETAMINOPHEN/HYDROcodone 325 MG/5 MG TAB PO PRN ×2 (00:11→17:03)
[2016-12-08 04:00] VITALS: BP 106/59; PULSE 70; RESP 18; TEMP 97.5; O2SAT 98
[2016-12-08] MEDS: ceFAZolin 2 GM PREMIX 50 ML IV SCH ×3 (06:21→19:40)
[2016-12-08] MEDS: MORPHINE SULFATE 30 MG/30 ML PCA IV SCH ×2 (06:23→17:55)
[2016-12-08] MEDS: PCA - TOTAL MG MORPHINE DELIVERED PER SHIFT SCH ×3 (06:33→22:00)
[2016-12-08 07:45] VITALS: BP 102/60; PULSE 78; RESP 16; TEMP 97.1; O2SAT 98
[2016-12-08] MEDS: SODIUM CHLORIDE 0.9% FLUSH 10 ML FLUSH IV FLUSH SCH ×2 (09:00→19:41)
[2016-12-08] MEDS: DOCUSATE SODIUM 50 MG/SENNA 8.6 MG TAB PO SCH ×2 (09:00→19:40)
[2016-12-08] MEDS ORDERED: PROPOFOL 200 MG/20 ML AMP IV ONE (09:44)
[2016-12-08] MEDS ORDERED: ONDANSETRON HCL 4 MG/2 ML VIAL IV PUSH ONE (09:44)
[2016-12-08 11:24] VITALS: BP 97/52; PULSE 85; RESP 16; TEMP 98.1; O2SAT 96
[2016-12-08] MEDS: SODIUM CHLOR 0.9% 1000 ML INJ 1,000 ML IV SCH ×3 (12:50→19:41)
[2016-12-08] MEDS ORDERED: MIDAZOLAM HCL 2 MG/2 ML VIAL ONE (13:56)
[2016-12-08] MEDS ORDERED: FAMOTIDINE 20 MG/2 ML VIAL ONE (13:57)
[2016-12-08] MEDS ORDERED: BUPIVACAINE HCL PF 0.25% 30 ML VIAL INFIL ONE (14:37)
[2016-12-08] MEDS ORDERED: NEOMYCIN/POLYMYXIN 1 ML G.U. IRRIGANT TOPICAL ONE (15:15)
[2016-12-08] MEDS ORDERED: DO NOT ADM ANY ANTICOAGULANT DRUGS PRN (15:44)
--- NOTE | 2016-12-08 15:44 | HHI.PR ---
Immediate Post Op Note Procedure Date: Dec 08, 2016 Pre Op Diagnosis: Left foot lisfranc open fracture dislocation degloving Post Op Diagnosis: same Surgeon: Hu Ochoa Manager Of It(s): scrub Procedure: Left foot incision drainage debridement, modification/adjustment of ex fix, application of wound vac. Findings: see op dictation Complications: none Specimen(s) removed: bone culture Estimated blood loss: less 30mL Anesthesia: General, Local Drains: None Fluids: see anethesia IVF Tourniquet time (min at mmHg) none Patient to: PACU Patient Condition: Good Implant/Devices: SEE IMPLANT LOG (if applicable) Date/Time of Procedure: SEE SURGICAL CARE RECORD Hu Ochoa DPM Dec 08, 2016 15:44
[2016-12-08] MEDS ORDERED: *morphine SULFATE 8 MG/ML PERIprocedure ONLY ONE ×2 (15:52→16:13)
[2016-12-08] MEDS: LACTULOSE SYRUP 20 GM/30 ML CUP PO PRN (18:03)
[2016-12-08] MEDS: SENNOSIDES 8.6 MG TAB PO PRN (18:03)
--- NOTE | 2016-12-08 19:01 | HHI.PR ---
Subjective Remarks patient states that left foot is sore denies fevers/chills denies cp/sob has not had BM for several days denies abdominal pain, nausea or vomiting BP stable Status post incision, drainage and debridement of the left foot Objective Vitals Vital Signs Date Time Temp Pulse Resp B/P Pulse Ox O2 Delivery O2 Flow Rate FiO2 12/08/16 17:55 15 12/08/16 16:15 74 16 137/82 95 Room Air 12/08/16 16:00 86 16 131/91 95 Room Air 12/08/16 15:45 97.8 88 16 128/81 96 12/08/16 14:00 15 12/08/16 11:24 98.1 85 16 97/52 96 12/08/16 08:00 98 Room Air 12/08/16 07:45 97.1 78 16 102/60 98 12/08/16 06:33 16 12/08/16 06:23 16 12/08/16 04:00 97.5 70 18 106/59 98 12/08/16 00:00 97.4 86 16 107/61 96 12/07/16 21:02 16 12/07/16 20:35 16 12/07/16 20:00 98.3 74 16 113/68 95 I/O 12/07/16 12/07/16 12/07/16 12/08/16 12/08/16 12/08/16 07:00 15:00 23:00 07:00 15:00 23:00 Intake Total 800 ml 1800 ml 1644 ml 0 ml 840 ml 50 ml Output Total 2700 ml 3050 ml 910 ml 10 ml 900 ml Balance -1900 ml -1250 ml 734 ml -10 ml -60 ml 50 ml Intake Oral 800 ml 1800 ml 720 ml 0 ml 0 ml IV Total 924 ml 840 ml 50 ml Output Urine Total 2675 ml 3050 ml 900 ml 900 ml Drainage Total 25 ml 10 ml 10 ml # Voids 2 # Bowel Movements 1 Result Diagram: 12/07/16 0610 12/07/16 0610 Imaging Last Impressions Lower Extremity CT 12/03/16 0000 Signed Impressions: Service Date/Time: Saturday, December 03, 2016 03:55 - CONCLUSION: 1. Multiple fractures, and extensive soft tissue injury with open fracture wound is at the dorsal aspect of the foot with associated foreign body retention. Ganesh Calvert MD Foot X-Ray 12/03/16 0000 Signed Impressions: Service Date/Time: Saturday, December 03, 2016 13:12 - CONCLUSION: Postsurgical changes. Rosa Andres MD Chest X-Ray 12/03/16 0000 Signed Impressions: Service Date/Time: Saturday, December 03, 2016 02:56 - CONCLUSION: No acute disease. Ganesh Calvert MD Objective Remarks GENERAL: NAD SKIN: Warm and dry. HEAD: Normocephalic. EYES: No scleral icterus. No injection or drainage. NECK: Supple, trachea midline. No JVD or lymphadenopathy. CARDIOVASCULAR: Regular rate and rhythm without murmurs, gallops, or rubs. RESPIRATORY: Breath sounds equal bilaterally. No accessory muscle use. GASTROINTESTINAL: Abdomen soft, non-tender, nondistended. MUSCULOSKELETAL: No cyanosis, or edema. Left lower extremity in cast with wound VAC in place BACK: Nontender without obvious deformity. No CVA tenderness. Procedures s/p staged I&D with application of external fixation left foot and wound vac. Medications and IVs Current Medications Medications (Trade) Dose Ordered Sig/Markel Route Start Time Stop Time Status Last Admin (NS 1000 ml Inj) 1,000 ml @ 100 mls/hr Q10H IV 12/03/16 08:00 12/08/16 17:50 (Zofran Inj) 4 mg Q6H PRN IVP 12/03/16 07:00 (Tylenol) 650 mg Q6H PRN PO 12/03/16 07:00 ([place] 5-325 Mg) 1 tab Q4H PRN PO 12/03/16 07:00 12/08/16 17:03 (Dilaudid Pf Inj) 1 mg Q3H PRN IV 12/03/16 07:00 Hold 12/03/16 15:27 (Quyen-Colace) 1 tab BID PO 12/03/16 09:00 12/07/16 09:22 (Milk Of Magnesia Liq) 30 ml Q12H PRN PO 12/03/16 07:00 12/07/16 06:18 (Senokot) 17.2 mg Q12H PRN PO 12/03/16 07:00 12/08/16 18:03 (Dulcolax Supp) 10 mg DAILY PRN RECTAL 7/16/17 07:00 (Lactulose Liq) 30 ml DAILY PRN PO 12/03/16 07:00 12/08/16 18:03 (NS Flush) 2 ml UNSCH PRN IV FLUSH 12/03/16 12:30 Sodium Chloride 2 ml 2 ml BID IV FLUSH 12/03/16 21:00 (Ancef 2 Gm Premix) 50 ml @ 100 mls/hr Q8H IV 12/03/16 13:00 12/08/16 12:48 (Narcan Inj) 0.4 mg UNSCH PRN IV 12/03/16 17:00 (Morphine 1 Mg/ ml PRODUCTION HONING MACHINE OPERATOR) 30 mg UNSCH IV 12/03/16 17:00 12/08/16 17:55 PRODUCTION HONING MACHINE OPERATOR Dosage Infused (Pha) 1 Q8HR .XX 12/03/16 22:00 12/08/16 14:00 (Catapres) 0.1 mg Q6H PRN PO 12/03/16 17:15 (Lovenox Inj) 40 mg Q24H SQ 12/07/16 20:00 Miscellaneous Information ALL NURSING DEPARTME... UNSCH PRN .XX 12/08/16 15:44 12/09/16 15:43 A/P Problem List: (1) Open fracture of left foot ICD Code: S92.902B Status: Acute Assessment and Plan 21 year-old man with Left foot open lisfranc fracture/dislocation with dorsal degloving injury and dorsalis pedis artery injury -s/p staged I&D with application of external fixation left foot and wound vac. - Wound culture positive for bacillus species not Anthracis; Continue on IV antibiotics, Cefazolin 2gm IV q8h and Gentamicin 80mg IV q8h. - Follow up on intraoperative wound cultures. - NWB left lower extremity - Pain management with Morphine PRODUCTION HONING MACHINE OPERATOR -SP incision drainage debridement with helene of Ex Fix right foot, wound vac application. - 12/03, 12/05 -Initial wound culture is growing bacillus species. ID consulted - Thought to be a contaminant. Gentamycin discontinued. Recommended continuation of IV cefazolin. -The patient underwent a Left foot incision drainage debridement, modification/adjustment of ex fix, application of wound vac today. Continue to follow-up podiatry recommendations Leukocytosis -Likely due to stress. Resolved. Constipation -Likely secondary to lack of mobilization and narcotic pain medication use. Continue senna, Colace. Discussed with RN. She will administered milk of magnesia and lactulose. Dulcolax suppository is available for severe constipation. DVT prophylaxis - SCD/YELENA, Will place on Lovenox SQ - Caprini score of 8 with a VTE risk of 6 % Discharge Planning Continue to monitor in the medical floor. Mundo Hartmann MD Dec 08, 2016 19:01
[2016-12-08] MEDS: MAGNESIUM HYDROXIDE SUSP 30 ML CUP PO PRN (19:40)
[2016-12-08] MEDS: ENOXAPARIN SODIUM 40 MG/0.4 ML SYRINGE SQ SCH (19:41)
[2016-12-08 20:00] VITALS: BP 96/74; PULSE 107; RESP 16; TEMP 96.8; O2SAT 98
[2016-12-09] VITALS (8 sets, daily range): BP systolic 100–115; BP diastolic 52–69; PULSE 75–97; RESP 16–17; TEMP 96.9–97.6; O2SAT 93–98
[2016-12-09] MEDS: ACETAMINOPHEN/HYDROcodone 325 MG/5 MG TAB PO PRN (00:13)
[2016-12-09] MEDS: MORPHINE SULFATE 30 MG/30 ML PCA IV SCH ×3 (00:16→19:36)
[2016-12-09] MEDS: LACTULOSE SYRUP 20 GM/30 ML CUP PO PRN (05:11)
[2016-12-09] MEDS: ceFAZolin 2 GM PREMIX 50 ML IV SCH ×3 (05:11→19:33)
[2016-12-09] MEDS: SENNOSIDES 8.6 MG TAB PO PRN (05:11)
[2016-12-09] MEDS: PCA - TOTAL MG MORPHINE DELIVERED PER SHIFT SCH ×3 (06:00→22:00)
[2016-12-09] MEDS: SODIUM CHLORIDE 0.9% FLUSH 10 ML FLUSH IV FLUSH SCH ×2 (09:00→19:34)
[2016-12-09] MEDS: DOCUSATE SODIUM 50 MG/SENNA 8.6 MG TAB PO SCH ×2 (09:45→19:34)
[2016-12-09] MEDS: MAGNESIUM HYDROXIDE SUSP 30 ML CUP PO PRN (09:45)
[2016-12-09] MEDS: SODIUM CHLOR 0.9% 1000 ML INJ 1,000 ML IV SCH ×2 (09:46→19:34)
--- NOTE | 2016-12-09 13:23 | PD.POD ---
Subjective Pain score: 7 Remarks left foot pain is controlled by meds. Past Med/Surg/Social History Social History Smoking Status: Never Smoker Objective Vital Signs Vital Signs Date Time Temp Pulse Resp B/P Pulse Ox O2 Delivery O2 Flow Rate FiO2 12/09/16 12:02 16 12/09/16 11:28 96.9 75 17 115/69 97 12/09/16 09:53 93 21 12/09/16 07:31 97.6 90 17 101/52 96 12/09/16 06:00 17 12/09/16 04:00 97.1 80 17 101/55 98 12/09/16 00:16 18 12/09/16 00:00 97.4 89 17 108/63 97 12/08/16 22:00 17 12/08/16 20:00 96.8 107 16 96/74 98 12/08/16 17:55 15 12/08/16 16:15 74 16 137/82 95 Room Air 12/08/16 16:00 86 16 131/91 95 Room Air 12/08/16 15:45 97.8 88 16 128/81 96 12/08/16 14:00 15 Coded Allergies: No Known Allergies (Unverified , 12/03/16) Physical Exam Remarks left foot ankle with splint bandage intact, wound vac in place, able to move toes, sensation intact to the top of the foot. Assessment & Plan A/P Left foot lisfranc midfoot open fracture dislocation with partial degloving. SP incision drainage debridement with helene of Ex Fix right foot, wound vac application. - 12/03, 12/05 Plan for repeat above sunday. Reviewed plan with patient, must continue to washout and monitor healing. Spoke to patient re: the theory of a possible vascular flap, will discuss with Vasc/Plastics. Hu Quevedo DPM Dec 09, 2016 13:23
--- NOTE | 2016-12-09 17:45 | HHI.PR ---
Subjective Remarks denies fevers/chills denies cp/sob had a BM Objective Vitals Vital Signs Date Time Temp Pulse Resp B/P Pulse Ox O2 Delivery O2 Flow Rate FiO2 12/09/16 15:31 97.0 96 17 113/55 97 12/09/16 14:00 17 12/09/16 12:02 16 12/09/16 11:28 96.9 75 17 115/69 97 12/09/16 09:53 93 21 12/09/16 07:31 97.6 90 17 101/52 96 12/09/16 06:00 17 12/09/16 04:00 97.1 80 17 101/55 98 12/09/16 00:16 18 12/09/16 00:00 97.4 89 17 108/63 97 12/08/16 22:00 17 12/08/16 20:00 96.8 107 16 96/74 98 12/08/16 17:55 15 I/O 12/08/16 12/08/16 12/08/16 12/09/16 12/09/16 12/09/16 06:59 14:59 22:59 06:59 14:59 22:59 Intake Total 0 ml 0 ml 2030 ml 1031 ml 850 ml Output Total 10 ml 200 ml 1650 ml 850 ml 950 ml Balance -10 ml -200 ml 380 ml 181 ml -100 ml Intake Oral 0 ml 0 ml 960 ml 720 ml 850 ml IV Total 1070 ml 311 ml Output Urine Total 200 ml 1650 ml 850 ml 950 ml Drainage Total 10 ml 0 ml 0 ml # Voids 2 # Bowel Movements 1 Result Diagram: 12/07/16 0610 12/07/16 0610 Imaging Last Impressions Lower Extremity CT 12/03/16 0000 Signed Impressions: Service Date/Time: Saturday, December 03, 2016 03:55 - CONCLUSION: 1. Multiple fractures, and extensive soft tissue injury with open fracture wound is at the dorsal aspect of the foot with associated foreign body retention. Ganesh Calvert MD Foot X-Ray 12/03/16 0000 Signed Impressions: Service Date/Time: Saturday, December 03, 2016 13:12 - CONCLUSION: Postsurgical changes. K. Carlo Andres MD Chest X-Ray 12/03/16 0000 Signed Impressions: Service Date/Time: Saturday, December 03, 2016 02:56 - CONCLUSION: No acute disease. Ganesh Calvert MD Objective Remarks GENERAL: NAD SKIN: Warm and dry. HEAD: Normocephalic. EYES: No scleral icterus. No injection or drainage. NECK: Supple, trachea midline. No JVD or lymphadenopathy. CARDIOVASCULAR: Regular rate and rhythm without murmurs, gallops, or rubs. RESPIRATORY: Breath sounds equal bilaterally. No accessory muscle use. GASTROINTESTINAL: Abdomen soft, non-tender, nondistended. MUSCULOSKELETAL: No cyanosis, or edema. Left lower extremity in cast with wound VAC in place BACK: Nontender without obvious deformity. No CVA tenderness. Procedures s/p staged I&D with application of external fixation left foot and wound vac. Medications and IVs Current Medications Medications (Trade) Dose Ordered Sig/Markel Route Start Time Stop Time Status Last Admin (NS 1000 ml Inj) 1,000 ml @ 100 mls/hr Q10H IV 12/03/16 08:00 12/10/16 09:37 (Zofran Inj) 4 mg Q6H PRN IVP 12/03/16 07:00 (Tylenol) 650 mg Q6H PRN PO 12/03/16 07:00 ([place] 5-325 Mg) 1 tab Q4H PRN PO 12/03/16 07:00 12/09/16 00:13 (Dilaudid Pf Inj) 1 mg Q3H PRN IV 12/03/16 07:00 Hold 12/03/16 15:27 (Quyen-Colace) 1 tab BID PO 12/03/16 09:00 12/10/16 09:37 (Milk Of Magnesia Liq) 30 ml Q12H PRN PO 12/03/16 07:00 12/10/16 09:37 (Senokot) 17.2 mg Q12H PRN PO 12/03/16 07:00 12/09/16 05:11 (Dulcolax Supp) 10 mg DAILY PRN RECTAL 12/03/16 07:00 12/09/16 12:19 (Lactulose Liq) 30 ml DAILY PRN PO 12/03/16 07:00 12/09/16 05:11 (NS Flush) 2 ml UNSCH PRN IV FLUSH 12/03/16 12:30 Sodium Chloride 2 ml 2 ml BID IV FLUSH 12/03/16 21:00 12/08/16 19:41 (Ancef 2 Gm Premix) 50 ml @ 100 mls/hr Q8H IV 12/03/16 13:00 12/10/16 06:01 (Narcan Inj) 0.4 mg UNSCH PRN IV 12/03/16 17:00 (Morphine 1 Mg/ ml CHAIRMAN & CHIEF EXECUTIVE OFFICER) 30 mg UNSCH IV 12/03/16 17:00 12/09/16 19:36 CHAIRMAN & CHIEF EXECUTIVE OFFICER Dosage Infused (Pha) 1 Q8HR .XX 12/03/16 22:00 12/10/16 06:00 (Catapres) 0.1 mg Q6H PRN PO 12/03/16 17:15 (Lovenox Inj) 40 mg Q24H SQ 12/07/16 20:00 12/09/16 19:34 A/P Problem List: (1) Open fracture of left foot ICD Code: S92.902B Status: Acute Assessment and Plan 21 year-old man with Left foot open lisfranc fracture/dislocation with dorsal degloving injury and dorsalis pedis artery injury -s/p staged I&D with application of external fixation left foot and wound vac. - Wound culture positive for bacillus species not Anthracis; Continue on IV antibiotics, Cefazolin 2gm IV q8h and Gentamicin 80mg IV q8h. - Follow up on intraoperative wound cultures. - NWB left lower extremity - Pain management with Morphine CHAIRMAN & CHIEF EXECUTIVE OFFICER -SP incision drainage debridement with helene of Ex Fix right foot, wound vac application. - 12/03, 12/05 -Initial wound culture is growing bacillus species. ID consulted - Thought to be a contaminant. Gentamycin discontinued. Recommended continuation of IV cefazolin. -The patient underwent a Left foot incision drainage debridement, modification/adjustment of ex fix, application of wound vac today. Continue to follow-up podiatry recommendations - Discussed case with Dr Ochoa - Will discuss case with vascular/plastics regarding possibility of a vascular flap. Leukocytosis -Likely due to stress. Resolved. Constipation -Likely secondary to lack of mobilization and narcotic pain medication use. Continue senna, Colace. Discussed with RN. She will administered milk of magnesia and lactulose. Dulcolax suppository is available for severe constipation. -Constipation resolved. DVT prophylaxis - SCD/YELENA, Will place on Lovenox SQ - Caprini score of 8 with a VTE risk of 6 % Discharge Planning Continue to monitor in the medical floor. Mundo Hartmann MD Dec 09, 2016 17:45
[2016-12-09] MEDS: ENOXAPARIN SODIUM 40 MG/0.4 ML SYRINGE SQ SCH (19:34)
[2016-12-09 20:01] LABS: BLOOD, URINE NEG (NEG); COMMENT (UR) CULT NOT INDICATED; CULTURE IF INDICATED CULT NOT INDICATED; GLUCOSE,URINE NEG (NEG); KETONE, URINE NEG (NEG); MUCUS URINE FEW /lpf (OCC); NITRITE,URINE NEG (NEG); URINE COLOR LIGHT-YELLOW (YELLW/STRAW)
[2016-12-10] VITALS (7 sets, daily range): BP systolic 94–136; BP diastolic 53–67; PULSE 68–85; RESP 17–18; TEMP 96.8–97.7; O2SAT 94–97
[2016-12-10] MEDS: PCA - TOTAL MG MORPHINE DELIVERED PER SHIFT SCH ×3 (06:00→22:00)
[2016-12-10] MEDS: ceFAZolin 2 GM PREMIX 50 ML IV SCH ×3 (06:01→19:51)
[2016-12-10] MEDS: SODIUM CHLORIDE 0.9% FLUSH 10 ML FLUSH IV FLUSH SCH ×2 (09:00→19:55)
[2016-12-10] MEDS: SODIUM CHLOR 0.9% 1000 ML INJ 1,000 ML IV SCH ×3 (09:37→23:33)
[2016-12-10] MEDS: MAGNESIUM HYDROXIDE SUSP 30 ML CUP PO PRN (09:37)
[2016-12-10] MEDS: DOCUSATE SODIUM 50 MG/SENNA 8.6 MG TAB PO SCH ×2 (09:37→19:51)
[2016-12-10] MEDS: MORPHINE SULFATE 30 MG/30 ML PCA IV SCH (13:39)
--- NOTE | 2016-12-10 15:18 | PD.POD ---
Subjective Pain score: 7 Remarks left foot pain is controlled by meds. Past Med/Surg/Social History Social History Smoking Status: Never Smoker Objective Vital Signs Vital Signs Date Time Temp Pulse Resp B/P Pulse Ox O2 Delivery O2 Flow Rate FiO2 12/10/16 13:41 16 12/10/16 13:39 16 12/10/16 12:00 97.6 77 18 117/66 95 12/10/16 08:00 97.4 84 18 97/57 94 12/10/16 06:00 18 12/10/16 04:13 97.5 70 18 94/53 96 12/10/16 00:08 97.5 85 18 101/54 97 12/09/16 22:00 18 12/09/16 21:07 96 21 12/09/16 20:28 97.5 97 16 100/57 96 12/09/16 19:36 18 12/09/16 15:31 97.0 96 17 113/55 97 Coded Allergies: No Known Allergies (Unverified , 12/03/16) Medications and IVs Administered Medications Medications (Trade) Dose Ordered Sig/Markel Route PRN Reason Start Time Stop Time Status Last Admin Dose Admin Sodium Chloride (NS 1000 ml Inj) 1,000 ml @ 100 mls/hr Q10H IV 12/03/16 08:00 12/10/16 09:37 Acetaminophen/ Hydrocodone Bitart ([place] 5-325 Mg) 1 tab Q4H PRN PO PAIN SCALE 3 TO 5 12/03/16 07:00 12/09/16 00:13 Hydromorphone HCl (Dilaudid Pf Inj) 1 mg Q3H PRN IV Pain 6-10 12/03/16 07:00 Hold 12/03/16 15:27 Senna/Docusate Sodium (Quyen-Colace) 1 tab BID PO 12/03/16 09:00 12/10/16 09:37 Magnesium Hydroxide (Milk Of Magnesia Liq) 30 ml Q12H PRN PO MILD - MODERATE CONSTIPATION 12/03/16 07:00 12/10/16 09:37 Sennosides (Senokot) 17.2 mg Q12H PRN PO MODERATE - SEVERE CONSTIPATION 12/03/16 07:00 12/09/16 05:11 Bisacodyl (Dulcolax Supp) 10 mg DAILY PRN RECTAL SEVERE CONSITIPATION 12/03/16 07:00 12/09/16 12:19 Lactulose (Lactulose Liq) 30 ml DAILY PRN PO SEVERE CONSITIPATION 12/03/16 07:00 12/09/16 05:11 Sodium Chloride 2 ml 2 ml BID IV FLUSH 12/03/16 21:00 12/08/16 19:41 Cefazolin Sodium/ Dextrose (Ancef 2 Gm Premix) 50 ml @ 100 mls/hr Q8H IV 12/03/16 13:00 12/10/16 12:58 Morphine Sulfate (Morphine 1 Mg/ ml SUPERVISOR PUBLIC MESSAGE SERVICE) 30 mg UNSCH IV 12/03/16 17:00 12/10/16 13:39 SUPERVISOR PUBLIC MESSAGE SERVICE Dosage Infused (Pha) 1 Q8HR .XX 12/03/16 22:00 12/10/16 13:41 Enoxaparin Sodium (Lovenox Inj) 40 mg Q24H SQ 12/07/16 20:00 12/09/16 19:34 Microbiology Date/Time Procedure Status Source Growth 12/08/16 14:53 Gram Stain - Final Resulted Wound Foot 12/08/16 14:53 Wound Culture - Preliminary Resulted Wound Foot NO GROWTH IN 48 HOURS. 12/08/16 14:53 Acid Fast Stain - Final Resulted Wound Foot NO ACID FAST BACILLI SEEN 12/08/16 14:53 Mycobacterial Culture Resulted Wound Foot Pending 12/08/16 14:53 Fungal Smear - Final Resulted Wound Foot NO FUNGAL ELEMENTS SEEN. 12/08/16 14:53 Fungal Culture Resulted Wound Foot Pending 12/08/16 14:54 Gram Stain - Final Resulted Wound Foot 12/08/16 14:54 Wound Culture - Preliminary Resulted Wound Foot NO GROWTH IN 48 HOURS. 12/08/16 14:54 Acid Fast Stain - Final Resulted Wound Foot NO ACID FAST BACILLI SEEN 12/08/16 14:54 Mycobacterial Culture Resulted Wound Foot Pending 12/08/16 14:54 Fungal Smear - Final Resulted Wound Foot NO FUNGAL ELEMENTS SEEN. 12/08/16 14:54 Fungal Culture Resulted Wound Foot Pending Physical Exam Remarks left foot ankle with splint bandage intact, wound vac in place, able to move toes, sensation intact to the top of the foot. Assessment & Plan A/P Left foot lisfranc midfoot open fracture dislocation with partial degloving. SP incision drainage debridement with helene of Ex Fix right foot, wound vac application. - 12/03, 12/05, 12/08 Last surgical Cx neg 24 hrs. Plan for repeat above sunday. Reviewed plan with patient, must continue to washout and monitor healing. Spoke to vascular - Dr Beth, will discuss with case management transfer to Pedicle flap surgeon- [facility]? [facility]? Dr Doyle to assume care starting tomorrow Hu Quevedo DPM Dec 10, 2016 15:18
[2016-12-10] MEDS: ENOXAPARIN SODIUM 40 MG/0.4 ML SYRINGE SQ SCH (19:52)
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
[2016-12-10] MEDS ORDERED: LACTATED RINGER'S 1000 ML IV PRN (22:15)
[2016-12-10] MEDS ORDERED: SODIUM CHLORID 0.9% 500 ML IV PRN (22:15)
--- NOTE | 2016-12-10 22:53 | PD.CAR.PN ---
CVT Progress Note Subjective/Hospital Course: Patient who came to the hospital after sustaining injury to the left foot. With the sticking out of the open G and the patient sustained Lisfranc fracture with degloving of the foot He now underwent several debridements and ex fix placement and is now left with a large degloved area of the dorsum of the foot This looks very clean and very nice and the it is an attestation as to the expert work performed by Dr. Quevedo and Dr. Quintana. At this point patient will need either rotational flap or transitional flap or a free flap full-thickness transfer with microvascular anastomosis Either way patient will need to be transferred to an institution that does this work to [facility] or [facility] I'll facilitate this transfer and discuss the case with the accepting surgeons if necessary Objective: Vital Signs Date Time Temp Pulse Resp B/P Pulse Ox O2 Delivery O2 Flow Rate FiO2 12/10/16 22:00 18 12/10/16 16:00 96.8 68 18 98/53 96 12/10/16 13:41 16 12/10/16 13:39 16 12/10/16 12:00 97.6 77 18 117/66 95 12/10/16 08:00 97.4 84 18 97/57 94 12/10/16 06:00 18 12/10/16 04:13 97.5 70 18 94/53 96 12/10/16 00:08 97.5 85 18 101/54 97 Result Diagram: 12/07/16 0610 12/07/16 0610 Ian Wills MD Dec 10, 2016 22:53
[2016-12-11] MEDS: MORPHINE SULFATE 30 MG/30 ML PCA IV SCH ×2 (00:12→22:48)
[2016-12-11 04:10] VITALS: BP 98/64; PULSE 77; RESP 16; TEMP 97.4; O2SAT 96
[2016-12-11] MEDS: ceFAZolin 2 GM PREMIX 50 ML IV SCH ×3 (05:10→20:31)
[2016-12-11] MEDS: PCA - TOTAL MG MORPHINE DELIVERED PER SHIFT SCH ×3 (06:00→22:00)
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
[2016-12-11 07:23] LABS: APTT (PATIENT) 32.1 SEC (24.3-30.1); PROTHROMBIN TIME - PATIENT 11.3 SEC (9.8-11.6)
[2016-12-11 07:27] LABS: HEMATOCRIT 45.2 % (39.0-51.0); MEAN CORPUSCULAR HEMOGLOBIN 30.1 PG (27.0-34.0); MEAN CORPUSCULAR HGB CONC 34.2 % (32.0-36.0); PLATELET COUNT 371 TH/MM3 (150-450); RED BLOOD COUNT 5.14 MIL/MM3 (4.50-5.90); RED CELL DISTRIBUTION WIDTH 12.8 % (11.6-17.2); REVIEW FLAG FINAL; WHITE BLOOD COUNT 5.4 TH/MM3 (4.0-11.0)
[2016-12-11 07:35] LABS: BICARBONATE 27.5 MEQ/L (21.0-32.0); POTASSIUM 5.2 MEQ/L (3.5-5.1)
[2016-12-11 08:00] VITALS: BP 106/67; PULSE 74; RESP 18; TEMP 97.2; O2SAT 96
[2016-12-11] MEDS: DOCUSATE SODIUM 50 MG/SENNA 8.6 MG TAB PO SCH ×2 (09:00→20:31)
[2016-12-11] MEDS: SODIUM CHLORIDE 0.9% FLUSH 10 ML FLUSH IV FLUSH SCH ×2 (09:00→20:33)
[2016-12-11] MEDS ORDERED: PROPOFOL 200 MG/20 ML AMP IV ONE (09:50)
[2016-12-11] MEDS ORDERED: ONDANSETRON HCL 4 MG/2 ML VIAL IV PUSH ONE (09:50)
[2016-12-11] MEDS ORDERED: LACTATED RINGER'S 1000 ML INJ 1,000 ML IV ONE (09:50)
--- NOTE | 2016-12-11 10:45 | HHI.PR ---
Subjective Remarks deferred entry - patient seen on 12/10 denies fevers/chills denies cp/sob Objective Vitals Vital Signs Date Time Temp Pulse Resp B/P Pulse Ox O2 Delivery O2 Flow Rate FiO2 12/11/16 08:00 97.2 74 18 106/67 96 12/11/16 06:00 19 12/11/16 04:10 97.4 77 16 98/64 96 12/11/16 00:12 16 12/10/16 23:45 97.0 79 17 107/56 94 12/10/16 22:00 18 12/10/16 21:30 97.7 83 18 136/67 96 12/10/16 16:00 96.8 68 18 98/53 96 12/10/16 13:41 16 12/10/16 13:39 16 12/10/16 12:00 97.6 77 18 117/66 95 I/O 12/10/16 12/10/16 12/10/16 12/11/16 12/11/16 12/11/16 07:00 15:00 23:00 07:00 15:00 23:00 Intake Total 587 ml 960 ml 1502 ml 301 ml 800 ml Output Total 1700 ml 0 ml 1200 ml 0 ml 1700 ml Balance -1113 ml 960 ml 302 ml 301 ml -900 ml Intake Oral 240 ml 960 ml 1020 ml 800 ml IV Total 347 ml 482 ml 301 ml Output Urine Total 1700 ml 1200 ml 1700 ml Drainage Total 0 ml 0 ml 0 ml 0 ml # Voids 4 # Bowel Movements 1 0 0 Result Diagram: 12/11/16 0529 12/11/16 0529 Objective Remarks GENERAL: NAD SKIN: Warm and dry. HEAD: Normocephalic. EYES: No scleral icterus. No injection or drainage. NECK: Supple, trachea midline. No JVD or lymphadenopathy. CARDIOVASCULAR: Regular rate and rhythm without murmurs, gallops, or rubs. RESPIRATORY: Breath sounds equal bilaterally. No accessory muscle use. GASTROINTESTINAL: Abdomen soft, non-tender, nondistended. MUSCULOSKELETAL: No cyanosis, or edema. Left lower extremity in cast with wound VAC in place BACK: Nontender without obvious deformity. No CVA tenderness. Procedures s/p staged I&D with application of external fixation left foot and wound vac. A/P Problem List: (1) Open fracture of left foot ICD Code: S92.902B Status: Acute Assessment and Plan 21 year-old man with Left foot open lisfranc fracture/dislocation with dorsal degloving injury and dorsalis pedis artery injury -s/p staged I&D with application of external fixation left foot and wound vac. - Wound culture positive for bacillus species not Anthracis; Continue on IV antibiotics, Cefazolin 2gm IV q8h and Gentamicin 80mg IV q8h. - Follow up on intraoperative wound cultures. - NWB left lower extremity - Pain management with Morphine COMMAND CENTER ANALYST -SP incision drainage debridement with helene of Ex Fix right foot, wound vac application. - 12/03, 12/05 -Initial wound culture is growing bacillus species. ID consulted - Thought to be a contaminant. Gentamycin discontinued. Recommended continuation of IV cefazolin. -The patient underwent a Left foot incision drainage debridement, modification/adjustment of ex fix, application of wound vac today. Continue to follow-up podiatry recommendations - Discussed case with Dr Ochoa - Will discuss case with vascular/plastics regarding possibility of a vascular flap. Leukocytosis -Likely due to stress. Resolved. Constipation -Likely secondary to lack of mobilization and narcotic pain medication use. Continue senna, Colace. Discussed with RN. She will administered milk of magnesia and lactulose. Dulcolax suppository is available for severe constipation. -Constipation resolved. DVT prophylaxis - SCD/YELENA, Will place on Lovenox SQ - Caprini score of 8 with a VTE risk of 6 % Discharge Planning Continue to monitor in the medical floor. Mundo Hartmann MD Dec 11, 2016 10:45
[2016-12-11 11:45] VITALS: BP 115/62; PULSE 72; RESP 18; TEMP 97.8; O2SAT 96
[2016-12-11 16:00] VITALS: BP 116/70; PULSE 84; RESP 18; TEMP 98.8; O2SAT 96
[2016-12-11] MEDS: SODIUM CHLOR 0.9% 1000 ML INJ 1,000 ML IV SCH (16:00)
[2016-12-11] MEDS ORDERED: BUPIVACAINE HCL PF 0.5% 30 ML VIAL ONE (16:19)
[2016-12-11] MEDS ORDERED: DEXAMETHASONE SOD PHOS 4 MG/ML VIAL ONE (17:07)
[2016-12-11] MEDS ORDERED: FAMOTIDINE 20 MG/2 ML VIAL ONE (17:07)
[2016-12-11] MEDS ORDERED: MIDAZOLAM HCL 2 MG/2 ML VIAL ONE (17:07)
[2016-12-11] MEDS ORDERED: NEOMYCIN/POLYMYXIN 1 ML G.U. IRRIGANT TOPICAL ONE (17:48)
[2016-12-11] MEDS ORDERED: HYDROmorphone HCL PF 2 MG/ML VIAL ONE (17:51)
[2016-12-11] MEDS ORDERED: fentaNYL CITRATE 250 MCG/5 ML AMP ONE (18:43)
[2016-12-11] MEDS ORDERED: DO NOT ADM ANY ANTICOAGULANT DRUGS PRN (18:46)
--- NOTE | 2016-12-11 18:55 | HHI.PR ---
Immediate Post Op Note Procedure Date: Dec 11, 2016 Pre Op Diagnosis: Open lisfranc dislocation L foot Post Op Diagnosis: same Surgeon: Jean Carlos Doyle DPM Police Records Clerk(s): Staff Procedure: I&D L foot with wound vac change Findings: Consistent with diagnosis. Wound to dorsal L foot with exposed tendon and bone with open lisfranc dislocation and external fixator intact. Wound irrigated with 6L NS with irrigant and excisional debridement of the wound with #15 blade and curettage, followed by culture of medial L foot between 1st/2nd distal metatarsal area and culture of lateral L rearfoot area near 5th metatarsal base/cuboid area. Wound vac reapplied and external fixator tightened, followed by well-padded posterior splint. NWB L foot. Plan to await cultures and possible integra graft with wound vac change and external fixator adjustment on /Sunday this week. Will discuss further treatment vs transfer for advanced plastics procedures based on cultures and tissue viability later this week. Continue wound vac at 125mmHg medium continuous setting until next procedure. Additional Information: n/a Complications: None Specimen(s) removed: Culture L medial foot Culture L lateral foot Estimated blood loss: minimal Anesthesia: General Drains: None IVF Tourniquet time (min at mmHg) n/a Patient to: PACU Patient Condition: Good Date/Time of Procedure: SEE SURGICAL CARE RECORD Jean Carlos Doyle DPM Dec 11, 2016 18:55
--- NOTE | 2016-12-11 19:23 | HHI.PR ---
Subjective Remarks sp ID of left foot with wound vac change pain controlled denies fevers/chills stable vital signs Objective Vitals Vital Signs Date Time Temp Pulse Resp B/P Pulse Ox O2 Delivery O2 Flow Rate FiO2 12/11/16 18:36 97.9 95 20 138/90 98 Nasal Cannula 2 12/11/16 16:00 98.8 84 18 116/70 96 12/11/16 11:45 97.8 72 18 115/62 96 12/11/16 08:00 97.2 74 18 106/67 96 12/11/16 06:00 19 12/11/16 04:10 97.4 77 16 98/64 96 12/11/16 00:12 16 12/10/16 23:45 97.0 79 17 107/56 94 12/10/16 22:00 18 12/10/16 21:30 97.7 83 18 136/67 96 I/O 12/10/16 12/10/16 12/10/16 12/11/16 12/11/16 12/11/16 07:00 15:00 23:00 07:00 15:00 23:00 Intake Total 587 ml 960 ml 1502 ml 301 ml 1040 ml 1000 ml Output Total 1700 ml 0 ml 1200 ml 0 ml 2400 ml 50 ml Balance -1113 ml 960 ml 302 ml 301 ml -1360 ml 950 ml Intake Oral 240 ml 960 ml 1020 ml 1040 ml IV Total 347 ml 482 ml 301 ml Other 1000 ml Output Urine Total 1700 ml 1200 ml 2400 ml Drainage Total 0 ml 0 ml 0 ml 0 ml Estimated Blood Loss 50 ml # Voids 4 # Bowel Movements 1 0 0 Result Diagram: 12/11/16 0529 12/11/16 0529 Imaging Last Impressions Lower Extremity CT 12/03/16 0000 Signed Impressions: Service Date/Time: Saturday, December 03, 2016 03:55 - CONCLUSION: 1. Multiple fractures, and extensive soft tissue injury with open fracture wound is at the dorsal aspect of the foot with associated foreign body retention. Ganesh Calvert MD Foot X-Ray 12/03/16 0000 Signed Impressions: Service Date/Time: Saturday, December 03, 2016 13:12 - CONCLUSION: Postsurgical changes. KChristopher Andres MD Chest X-Ray 12/03/16 0000 Signed Impressions: Service Date/Time: Saturday, December 03, 2016 02:56 - CONCLUSION: No acute disease. Ganesh Calvert MD Objective Remarks GENERAL: NAD SKIN: Warm and dry. HEAD: Normocephalic. EYES: No scleral icterus. No injection or drainage. NECK: Supple, trachea midline. No JVD or lymphadenopathy. CARDIOVASCULAR: Regular rate and rhythm without murmurs, gallops, or rubs. RESPIRATORY: Breath sounds equal bilaterally. No accessory muscle use. GASTROINTESTINAL: Abdomen soft, non-tender, nondistended. MUSCULOSKELETAL: No cyanosis, or edema. Left lower extremity in cast with wound VAC in place BACK: Nontender without obvious deformity. No CVA tenderness. Procedures s/p staged I&D with application of external fixation left foot and wound vac. Medications and IVs Current Medications Medications (Trade) Dose Ordered Sig/Amrkel Route Start Time Stop Time Status Last Admin (NS 1000 ml Inj) 1,000 ml @ 100 mls/hr Q10H IV 12/03/16 08:00 12/10/16 09:37 (Zofran Inj) 4 mg Q6H PRN IVP 12/03/16 07:00 (Tylenol) 650 mg Q6H PRN PO 12/03/16 07:00 ([place] 5-325 Mg) 1 tab Q4H PRN PO 12/03/16 07:00 12/09/16 00:13 (Dilaudid Pf Inj) 1 mg Q3H PRN IV 12/03/16 07:00 Hold 12/03/16 15:27 (Quyen-Colace) 1 tab BID PO 12/03/16 09:00 12/10/16 19:51 (Milk Of Magnesia Liq) 30 ml Q12H PRN PO 12/03/16 07:00 12/10/16 09:37 (Senokot) 17.2 mg Q12H PRN PO 12/03/16 07:00 12/09/16 05:11 (Dulcolax Supp) 10 mg DAILY PRN RECTAL 12/03/16 07:00 12/09/16 12:19 (Lactulose Liq) 30 ml DAILY PRN PO 12/03/16 07:00 12/09/16 05:11 (NS Flush) 2 ml UNSCH PRN IV FLUSH 12/03/16 12:30 Sodium Chloride 2 ml 2 ml BID IV FLUSH 12/03/16 21:00 12/08/16 19:41 (Ancef 2 Gm Premix) 50 ml @ 100 mls/hr Q8H IV 12/03/16 13:00 12/11/16 14:16 (Narcan Inj) 0.4 mg UNSCH PRN IV 12/03/16 17:00 (Morphine 1 Mg/ ml LOAD TESTER) 30 mg UNSCH IV 12/03/16 17:00 12/11/16 00:12 LOAD TESTER Dosage Infused (Pha) 1 Q8HR .XX 12/03/16 22:00 12/11/16 14:00 (Catapres) 0.1 mg Q6H PRN PO 12/03/16 17:15 Enoxaparin Sodium 40 mg 40 mg Q24H SQ 12/07/16 20:00 12/09/16 19:34 Lactated Ringer's 1,000 ml @ 30 mls/hr Q24H PRN IV 12/10/16 22:15 12/13/16 22:14 (NS 500 ml Inj) 500 ml @ 30 mls/hr [id number] PRN IV 12/10/16 22:15 12/13/16 22:14 A/P Problem List: (1) Open fracture of left foot ICD Code: S92.902B Status: Acute Assessment and Plan 21 year-old man with Left foot open lisfranc fracture/dislocation with dorsal degloving injury and dorsalis pedis artery injury -s/p staged I&D with application of external fixation left foot and wound vac. - Wound culture positive for bacillus species not Anthracis; the patient was started on IV antibiotics, Cefazolin 2gm IV q8h and Gentamicin 80mg IV q8h. - Follow up on intraoperative wound cultures. - NWB left lower extremity - Pain management with Morphine LOAD TESTER -SP incision drainage debridement with helene of Ex Fix right foot, wound vac application. - 12/03, 12/05, 12/08, 12/11 -Initial wound culture is growing bacillus species. ID consulted - Thought to be a contaminant. Gentamycin discontinued. Recommended continuation of IV cefazolin. - Discussed with Dr Ochoa - Vascular surgery consulted for further management. - Vascular surgery recommends graft to the dorsum of the foot, however and the ways could be done at this institution. -The patient underwent an incision drainage with left wound VAC placement today. As per podiatry the plan is to await cultures and possible integra graft with wound vac change and external fixator adjustment on /Sunday this week. Will discuss further treatment vs transfer for advanced plastics procedures based on cultures and tissue viability later this week. Leukocytosis -Likely due to stress. Resolved. Constipation -Likely secondary to lack of mobilization and narcotic pain medication use. Continue senge, Colace. Discussed with RN. She will administered milk of magnesia and lactulose. Dulcolax suppository is available for severe constipation. -Constipation resolved. DVT prophylaxis - SCD/YELENA, Will place on Lovenox SQ - Caprini score of 8 with a VTE risk of 6 % Discharge Planning Continue to monitor in the medical floor. Mundo Hartmann MD Dec 11, 2016 19:23
[2016-12-11] MEDS: ENOXAPARIN SODIUM 40 MG/0.4 ML SYRINGE SQ SCH (20:00)
[2016-12-11 20:20] VITALS: BP 133/94; PULSE 73; RESP 16; TEMP 98.6; O2SAT 96
[2016-12-11] MEDS: ACETAMINOPHEN/HYDROcodone 325 MG/5 MG TAB PO PRN (20:32)
[2016-12-12] VITALS (7 sets, daily range): BP systolic 103–115; BP diastolic 64–78; PULSE 75–95; RESP 16–20; TEMP 97–98; O2SAT 94–99
[2016-12-12] MEDS: SODIUM CHLOR 0.9% 1000 ML INJ 1,000 ML IV SCH ×3 (02:00→22:00)
[2016-12-12] MEDS: ACETAMINOPHEN/HYDROcodone 325 MG/5 MG TAB PO PRN (02:35)
[2016-12-12] MEDS: MORPHINE SULFATE 30 MG/30 ML PCA IV SCH ×3 (04:58→21:09)
[2016-12-12] MEDS: ceFAZolin 2 GM PREMIX 50 ML IV SCH ×3 (05:33→20:46)
[2016-12-12] MEDS: PCA - TOTAL MG MORPHINE DELIVERED PER SHIFT SCH ×3 (06:00→22:00)
[2016-12-12] MEDS: SODIUM CHLORIDE 0.9% FLUSH 10 ML FLUSH IV FLUSH SCH ×2 (09:00→20:49)
[2016-12-12] MEDS: DOCUSATE SODIUM 50 MG/SENNA 8.6 MG TAB PO SCH ×2 (09:00→20:46)
--- NOTE | 2016-12-12 14:11 | HHI.PR ---
Subjective Remarks pain controlled denies fevers/chills denies diarrhea stable vital signs Objective Vitals Vital Signs Date Time Temp Pulse Resp B/P Pulse Ox O2 Delivery O2 Flow Rate FiO2 12/12/16 11:42 97.9 95 18 108/65 97 12/12/16 08:00 97.0 76 18 113/78 95 12/12/16 06:00 18 12/12/16 05:03 18 12/12/16 04:58 18 12/12/16 04:00 97.6 75 20 115/71 96 12/12/16 03:47 18 12/12/16 01:17 94 12/12/16 01:15 Room Air 12/12/16 00:00 98.0 94 20 110/64 94 12/11/16 22:48 18 12/11/16 22:00 18 12/11/16 20:20 98.6 73 16 133/94 96 12/11/16 19:25 97.9 68 20 137/91 93 Nasal Cannula 2 12/11/16 19:15 97.9 68 20 137/91 93 Nasal Cannula 2 12/11/16 19:00 73 20 135/86 92 Nasal Cannula 2 12/11/16 18:45 76 20 139/90 93 Nasal Cannula 2 12/11/16 18:36 97.9 95 20 138/90 98 Nasal Cannula 2 12/11/16 16:00 98.8 84 18 116/70 96 I/O 12/11/16 12/11/16 12/11/16 12/12/16 12/12/16 12/12/16 07:00 15:00 23:00 07:00 15:00 23:00 Intake Total 301 ml 1040 ml 1447 ml 1002 ml Output Total 0 ml 2400 ml 60 ml 1165 ml Balance 301 ml -1360 ml 1387 ml -163 ml Intake Oral 1040 ml 240 ml 720 ml IV Total 301 ml 207 ml 282 ml Other 1000 ml Output Urine Total 2400 ml 1150 ml Drainage Total 0 ml 10 ml 15 ml Estimated Blood Loss 50 ml # Voids 2 # Bowel Movements 0 0 0 Result Diagram: 12/11/1652812/11/16528 Objective Remarks GENERAL: NAD SKIN: Warm and dry. HEAD: Normocephalic. EYES: No scleral icterus. No injection or drainage. NECK: Supple, trachea midline. No JVD or lymphadenopathy. CARDIOVASCULAR: Regular rate and rhythm without murmurs, gallops, or rubs. RESPIRATORY: Breath sounds equal bilaterally. No accessory muscle use. GASTROINTESTINAL: Abdomen soft, non-tender, nondistended. MUSCULOSKELETAL: No cyanosis, or edema. Left lower extremity in cast with wound VAC in place BACK: Nontender without obvious deformity. No CVA tenderness. Procedures s/p staged I&D with application of external fixation left foot and wound vac. Medications and IVs Current Medications Medications (Trade) Dose Ordered Sig/Markel Route Start Time Stop Time Status Last Admin (NS 1000 ml Inj) 1,000 ml @ 100 mls/hr Q10H IV 12/03/16 08:00 12/12/16 13:16 (Zofran Inj) 4 mg Q6H PRN IVP 12/03/16 07:00 (Tylenol) 650 mg Q6H PRN PO 12/03/16 07:00 ([place] 5-325 Mg) 1 tab Q4H PRN PO 12/03/16 07:00 12/12/16 02:35 (Dilaudid Pf Inj) 1 mg Q3H PRN IV 12/03/16 07:00 Hold 12/03/16 15:27 (Quyen-Colace) 1 tab BID PO 12/03/16 09:00 12/12/16 20:46 (Milk Of Magnesia Liq) 30 ml Q12H PRN PO 12/03/16 07:00 12/12/16 20:46 (Senokot) 17.2 mg Q12H PRN PO 12/03/16 07:00 12/09/16 05:11 (Dulcolax Supp) 10 mg DAILY PRN RECTAL 12/03/16 07:00 12/09/16 12:19 (Lactulose Liq) 30 ml DAILY PRN PO 12/03/16 07:00 12/09/16 05:11 (NS Flush) 2 ml UNSCH PRN IV FLUSH 12/03/16 12:30 Sodium Chloride 2 ml 2 ml BID IV FLUSH 12/03/16 21:00 12/08/16 19:41 (Ancef 2 Gm Premix) 50 ml @ 100 mls/hr Q8H IV 12/03/16 13:00 12/12/16 20:46 (Narcan Inj) 0.4 mg UNSCH PRN IV 12/03/16 17:00 (Morphine 1 Mg/ ml WOODS MANAGER) 30 mg UNSCH IV 12/03/16 17:00 12/12/16 21:09 WOODS MANAGER Dosage Infused (Pha) 1 Q8HR .XX 12/03/16 22:00 12/12/16 22:00 (Catapres) 0.1 mg Q6H PRN PO 12/03/16 17:15 Enoxaparin Sodium 40 mg 40 mg Q24H SQ 12/07/16 20:00 12/12/16 20:46 Lactated Ringer's 1,000 ml @ 30 mls/hr Q24H PRN IV 12/10/16 22:15 12/13/16 22:14 (NS 500 ml Inj) 500 ml @ 30 mls/hr [id number] PRN IV 12/10/16 22:15 12/13/16 22:14 A/P Problem List: (1) Open fracture of left foot ICD Code: S92.902B Status: Acute Assessment and Plan 21 year-old man with Left foot open lisfranc fracture/dislocation with dorsal degloving injury and dorsalis pedis artery injury -s/p staged I&D with application of external fixation left foot and wound vac. - Wound culture positive for bacillus species not Anthracis; the patient was started on IV antibiotics, Cefazolin 2gm IV q8h and Gentamicin 80mg IV q8h. - Follow up on intraoperative wound cultures. - NWB left lower extremity - Pain management with Morphine WOODS MANAGER -SP incision drainage debridement with helene of Ex Fix right foot, wound vac application. - 12/03, 12/05, 12/08, 12/11 -Initial wound culture is growing bacillus species. ID consulted - Thought to be a contaminant. Gentamycin discontinued. Recommended continuation of IV cefazolin. - Discussed with Dr Ochoa - Vascular surgery consulted for further management. - Vascular surgery recommends graft to the dorsum of the foot, however and the ways could be done at this institution. -The patient underwent an incision drainage with left wound VAC placement today. As per podiatry the plan is to await cultures and possible integra graft with wound vac change and external fixator adjustment on /Sunday this week. Will discuss further treatment vs transfer for advanced plastics procedures based on cultures and tissue viability later this week. Leukocytosis -Likely due to stress. Resolved. Constipation -Likely secondary to lack of mobilization and narcotic pain medication use. Continue senna, Colace. Discussed with RN. She will administered milk of magnesia and lactulose. Dulcolax suppository is available for severe constipation. -Constipation resolved. DVT prophylaxis - SCD/YELENA, Will place on Lovenox SQ - Caprini score of 8 with a VTE risk of 6 % Discharge Planning Continue to monitor in the medical floor. Mundo Hartmann MD Dec 12, 2016 14:11
[2016-12-12] MEDS: MAGNESIUM HYDROXIDE SUSP 30 ML CUP PO PRN (20:46)
[2016-12-12] MEDS: ENOXAPARIN SODIUM 40 MG/0.4 ML SYRINGE SQ SCH (20:46)
[2016-12-13] VITALS (7 sets, daily range): BP systolic 98–113; BP diastolic 57–70; PULSE 64–82; RESP 16–18; TEMP 96.2–97.5; O2SAT 94–98
[2016-12-13] MEDS: ACETAMINOPHEN/HYDROcodone 325 MG/5 MG TAB PO PRN ×3 (00:08→23:52)
[2016-12-13] MEDS: MORPHINE SULFATE 30 MG/30 ML PCA IV SCH ×4 (02:02→23:56)
[2016-12-13] MEDS: PCA - TOTAL MG MORPHINE DELIVERED PER SHIFT SCH ×3 (06:00→22:00)
[2016-12-13] MEDS: ceFAZolin 2 GM PREMIX 50 ML IV SCH ×3 (06:09→20:17)
[2016-12-13 07:20] LABS: BICARBONATE 29.7 MEQ/L (21.0-32.0); POTASSIUM 4.5 MEQ/L (3.5-5.1)
[2016-12-13] MEDS: SODIUM CHLORIDE 0.9% FLUSH 10 ML FLUSH IV FLUSH SCH ×2 (09:00→20:21)
[2016-12-13] MEDS: DOCUSATE SODIUM 50 MG/SENNA 8.6 MG TAB PO SCH ×2 (09:23→20:17)
[2016-12-13] MEDS: SODIUM CHLOR 0.9% 1000 ML INJ 1,000 ML IV SCH ×2 (09:25→18:00)
--- NOTE | 2016-12-13 12:04 | HHI.PR ---
Subjective Remarks A malignant abdominal pain, Denies chest pain or shortness of breath Denies fevers or chills Pain controlled Objective Vitals Vital Signs Date Time Temp Pulse Resp B/P Pulse Ox O2 Delivery O2 Flow Rate FiO2 12/13/16 11:40 97.0 66 18 109/70 98 12/13/16 11:40 16 12/13/16 10:27 66 113/66 12/13/16 08:00 96.9 67 18 98/57 96 12/13/16 06:00 16 12/13/16 04:15 97.5 64 16 104/65 96 12/13/16 03:22 Room Air 12/13/16 02:07 18 12/13/16 02:02 18 12/13/16 01:08 18 12/13/16 00:39 Room Air 12/13/16 00:00 96.2 72 16 99/61 96 12/12/16 22:00 18 12/12/16 21:09 18 12/12/16 20:00 97.6 75 16 112/66 98 12/12/16 16:00 97.9 77 18 103/64 99 I/O 12/12/16 12/12/16 12/12/16 12/13/16 12/13/16 12/13/16 07:00 15:00 23:00 07:00 15:00 23:00 Intake Total 1002 ml 480 ml 1235 ml 234 ml 480 ml Output Total 1165 ml 1200 ml 1200 ml 0 ml 700 ml Balance -163 ml -720 ml 35 ml 234 ml -220 ml Intake Oral 720 ml 480 ml 960 ml 480 ml IV Total 282 ml 275 ml 234 ml Output Urine Total 1150 ml 1200 ml 1200 ml 700 ml Drainage Total 15 ml 0 ml 0 ml # Bowel Movements 0 0 0 0 Result Diagram: 12/11/16 0529 12/13/16 0546 Imaging Last Impressions Lower Extremity CT 12/03/16 0000 Signed Impressions: Service Date/Time: Saturday, December 03, 2016 03:55 - CONCLUSION: 1. Multiple fractures, and extensive soft tissue injury with open fracture wound is at the dorsal aspect of the foot with associated foreign body retention. Ganesh Calvert MD Foot X-Ray 12/03/16 0000 Signed Impressions: Service Date/Time: Saturday, December 03, 2016 13:12 - CONCLUSION: Postsurgical changes. Rosa Andres MD Chest X-Ray 12/03/16 0000 Signed Impressions: Service Date/Time: Saturday, December 03, 2016 02:56 - CONCLUSION: No acute disease. Ganesh Calvert MD Objective Remarks GENERAL: NAD SKIN: Warm and dry. HEAD: Normocephalic. EYES: No scleral icterus. No injection or drainage. NECK: Supple, trachea midline. No JVD or lymphadenopathy. CARDIOVASCULAR: Regular rate and rhythm without murmurs, gallops, or rubs. RESPIRATORY: Breath sounds equal bilaterally. No accessory muscle use. GASTROINTESTINAL: Abdomen soft, non-tender, nondistended. MUSCULOSKELETAL: No cyanosis, or edema. Left lower extremity in cast with wound VAC in place BACK: Nontender without obvious deformity. No CVA tenderness. Procedures s/p staged I&D with application of external fixation left foot and wound vac. Medications and IVs Current Medications Medications (Trade) Dose Ordered Sig/Markel Route Start Time Stop Time Status Last Admin (NS 1000 ml Inj) 1,000 ml @ 100 mls/hr Q10H IV 12/03/16 08:00 12/13/16 09:25 (Zofran Inj) 4 mg Q6H PRN IVP 12/03/16 07:00 (Tylenol) 650 mg Q6H PRN PO 12/03/16 07:00 ([place] 5-325 Mg) 1 tab Q4H PRN PO 12/03/16 07:00 12/13/16 00:08 (Dilaudid Pf Inj) 1 mg Q3H PRN IV 12/03/16 07:00 Hold 12/03/16 15:27 (Quyen-Colace) 1 tab BID PO 12/03/16 09:00 12/13/16 09:23 (Milk Of Magnesia Liq) 30 ml Q12H PRN PO 12/03/16 07:00 12/12/16 20:46 (Senokot) 17.2 mg Q12H PRN PO 12/03/16 07:00 12/09/16 05:11 (Dulcolax Supp) 10 mg DAILY PRN RECTAL 12/03/16 07:00 12/09/16 12:19 (Lactulose Liq) 30 ml DAILY PRN PO 12/03/16 07:00 12/09/16 05:11 (NS Flush) 2 ml UNSCH PRN IV FLUSH 12/03/16 12:30 Sodium Chloride 2 ml 2 ml BID IV FLUSH 12/03/16 21:00 12/08/16 19:41 (Ancef 2 Gm Premix) 50 ml @ 100 mls/hr Q8H IV 12/03/16 13:00 12/13/16 11:36 (Narcan Inj) 0.4 mg UNSCH PRN IV 12/03/16 17:00 (Morphine 1 Mg/ ml WOUND/OSTOMY CLINICAL NURSE SPECIALIST) 30 mg UNSCH IV 12/03/16 17:00 12/13/16 11:40 WOUND/OSTOMY CLINICAL NURSE SPECIALIST Dosage Infused (Pha) 1 Q8HR .XX 12/03/16 22:00 12/13/16 06:00 (Catapres) 0.1 mg Q6H PRN PO 12/03/16 17:15 Enoxaparin Sodium 40 mg 40 mg Q24H SQ 12/07/16 20:00 12/12/16 20:46 Lactated Ringer's 1,000 ml @ 30 mls/hr Q24H PRN IV 12/10/16 22:15 12/13/16 22:14 (NS 500 ml Inj) 500 ml @ 30 mls/hr [id number] PRN IV 12/10/16 22:15 12/13/16 22:14 Urinary Catheter: No Vascular Central Line Catheter: No A/P Problem List: (1) Open fracture of left foot ICD Code: S92.902B Status: Acute Assessment and Plan 21 year-old man with Left foot open lisfranc fracture/dislocation with dorsal degloving injury and dorsalis pedis artery injury -s/p staged I&D with application of external fixation left foot and wound vac. - Wound culture positive for bacillus species not Anthracis; the patient was started on IV antibiotics, Cefazolin 2gm IV q8h and Gentamicin 80mg IV q8h. - Follow up on intraoperative wound cultures. - NWB left lower extremity - Pain management with Morphine WOUND/OSTOMY CLINICAL NURSE SPECIALIST -SP incision drainage debridement with helene of Ex Fix right foot, wound vac application. - 12/03, 12/05, 12/08, 12/11 -Initial wound culture is growing bacillus species. ID consulted - Thought to be a contaminant. Gentamycin discontinued. Recommended continuation of IV cefazolin. - Discussed with Dr Ochoa - Vascular surgery consulted for further management. - Vascular surgery recommends graft to the dorsum of the foot, however and the ways could be done at this institution. -The patient underwent an incision drainage with left wound VAC placement today. As per podiatry the plan is to await cultures and possible integra graft with wound vac change and external fixator adjustment on /Sunday this week. Will discuss further treatment vs transfer for advanced plastics procedures based on cultures and tissue viability later this week. Leukocytosis -Likely due to stress. Resolved. Constipation -Likely secondary to lack of mobilization and narcotic pain medication use. Continue senna, Colace. Discussed with RN. She will administered milk of magnesia and lactulose. Dulcolax suppository is available for severe constipation. -Constipation resolved. DVT prophylaxis - SCD/YELENA, Will place on Lovenox SQ - Caprini score of 8 with a VTE risk of 6 % Discharge Planning Continue to monitor in the medical floor. Mundo Hartmann MD Dec 13, 2016 12:04
[2016-12-13] MEDS: ENOXAPARIN SODIUM 40 MG/0.4 ML SYRINGE SQ SCH (20:17)
[2016-12-14 00:16] VITALS: BP 115/63; PULSE 75; RESP 18; TEMP 97.4; O2SAT 95
[2016-12-14 04:12] VITALS: BP 116/70; PULSE 68; RESP 18; TEMP 97.3; O2SAT 95
[2016-12-14] MEDS: ceFAZolin 2 GM PREMIX 50 ML IV SCH ×2 (04:33→12:58)
[2016-12-14] MEDS: SODIUM CHLOR 0.9% 1000 ML INJ 1,000 ML IV SCH (04:36)
[2016-12-14] MEDS: ACETAMINOPHEN/HYDROcodone 325 MG/5 MG TAB PO PRN (04:36)
[2016-12-14] MEDS: PCA - TOTAL MG MORPHINE DELIVERED PER SHIFT SCH (06:00)
[2016-12-14 08:00] VITALS: BP 112/69; PULSE 75; RESP 18; TEMP 97.5; O2SAT 97
--- NOTE | 2016-12-14 08:18 | PD.POD ---
Subjective Podiatric Problems Open lisfranc dislocation L foot s/p external fixation with I&D x 4 Complains of heel hurting Pain score: 7 Past Med/Surg/Social History Social History Smoking Status: Never Smoker Objective Vital Signs Vital Signs Date Time Temp Pulse Resp B/P Pulse Ox O2 Delivery O2 Flow Rate FiO2 12/14/16 06:00 17 12/14/16 04:12 97.3 68 18 116/70 95 12/14/16 00:16 97.4 75 18 115/63 95 12/14/16 00:06 18 12/13/16 23:56 18 12/13/16 22:00 17 12/13/16 20:40 97.2 82 18 103/57 94 12/13/16 20:00 94 Room Air 12/13/16 19:29 17 12/13/16 18:38 16 12/13/16 15:48 97.0 68 18 108/65 96 12/13/16 11:40 97.0 66 18 109/70 98 12/13/16 11:40 16 12/13/16 10:27 66 113/66 Coded Allergies: No Known Allergies (Unverified , 12/03/16) Physical Exam Remarks bandage clean,dry, intact. wound vac intact and functioning. Assessment & Plan A/P Open lisfranc dislocation L foot s/p external fixation with I&D x 4 Discussed with León Sanders MD, plastic surgery [facility] and is willing to accept transfer of patient for further care. Transfer today, if possible Float L heel at all times to reduce pressure Jean Carlos Doyle DPM Dec 14, 2016 08:18
[2016-12-14] MEDS: SODIUM CHLORIDE 0.9% FLUSH 10 ML FLUSH IV FLUSH SCH (09:00)
[2016-12-14] MEDS: MAGNESIUM HYDROXIDE SUSP 30 ML CUP PO PRN (09:58)
[2016-12-14] MEDS: DOCUSATE SODIUM 50 MG/SENNA 8.6 MG TAB PO SCH (09:58)
[2016-12-14] MEDS: SENNOSIDES 8.6 MG TAB PO PRN (09:58)
--- NOTE | 2016-12-14 11:14 | HHI.PR ---
Subjective Remarks denies cp/sob/fevers/chills/cough stable vital signs afebrile pain controlled Objective Vitals Vital Signs Date Time Temp Pulse Resp B/P Pulse Ox O2 Delivery O2 Flow Rate FiO2 12/14/16 08:00 97.5 75 18 112/69 97 12/14/16 06:00 17 12/14/16 04:12 97.3 68 18 116/70 95 12/14/16 00:16 97.4 75 18 115/63 95 12/14/16 00:06 18 12/13/16 23:56 18 12/13/16 22:00 17 12/13/16 20:40 97.2 82 18 103/57 94 12/13/16 20:00 94 Room Air 12/13/16 19:29 17 12/13/16 18:38 16 12/13/16 15:48 97.0 68 18 108/65 96 12/13/16 11:40 97.0 66 18 109/70 98 12/13/16 11:40 16 I/O 12/13/16 12/13/16 12/13/16 12/14/16 12/14/16 12/14/16 07:00 15:00 23:00 07:00 15:00 23:00 Intake Total 234 ml 1440 ml 1245 ml 731 ml Output Total 0 ml 700 ml 50 ml 50 ml Balance 234 ml 740 ml 1195 ml 681 ml Intake Oral 1440 ml 720 ml 480 ml IV Total 234 ml 525 ml 251 ml Output Urine Total 700 ml Drainage Total 0 ml 50 ml 50 ml # Voids 4 3 1 # Bowel Movements 0 0 0 Result Diagram: 12/11/16 0529 12/13/16 0546 Imaging Last Impressions Lower Extremity CT 12/03/16 0000 Signed Impressions: Service Date/Time: Saturday, December 03, 2016 03:55 - CONCLUSION: 1. Multiple fractures, and extensive soft tissue injury with open fracture wound is at the dorsal aspect of the foot with associated foreign body retention. Ganesh Calvert MD Foot X-Ray 12/03/16 0000 Signed Impressions: Service Date/Time: Saturday, December 03, 2016 13:12 - CONCLUSION: Postsurgical changes. KChristopher Andres MD Chest X-Ray 12/03/16 0000 Signed Impressions: Service Date/Time: Saturday, December 03, 2016 02:56 - CONCLUSION: No acute disease. Ganesh Calvert MD Objective Remarks GENERAL: NAD SKIN: Warm and dry. HEAD: Normocephalic. EYES: No scleral icterus. No injection or drainage. NECK: Supple, trachea midline. No JVD or lymphadenopathy. CARDIOVASCULAR: Regular rate and rhythm without murmurs, gallops, or rubs. RESPIRATORY: Breath sounds equal bilaterally. No accessory muscle use. GASTROINTESTINAL: Abdomen soft, non-tender, nondistended. MUSCULOSKELETAL: No cyanosis, or edema. Left lower extremity in cast with wound VAC in place BACK: Nontender without obvious deformity. No CVA tenderness. Procedures s/p staged I&D with application of external fixation left foot and wound vac. Medications and IVs Current Medications Medications (Trade) Dose Ordered Sig/Markel Route Start Time Stop Time Status Last Admin (NS 1000 ml Inj) 1,000 ml @ 100 mls/hr Q10H IV 12/03/16 08:00 12/14/16 04:36 (Zofran Inj) 4 mg Q6H PRN IVP 12/03/16 07:00 (Tylenol) 650 mg Q6H PRN PO 12/03/16 07:00 ([place] 5-325 Mg) 1 tab Q4H PRN PO 12/03/16 07:00 12/14/16 04:36 (Dilaudid Pf Inj) 1 mg Q3H PRN IV 12/03/16 07:00 Hold 12/03/16 15:27 (Quyen-Colace) 1 tab BID PO 12/03/16 09:00 12/14/16 09:58 (Milk Of Magnesia Liq) 30 ml Q12H PRN PO 12/03/16 07:00 12/14/16 09:58 (Senokot) 17.2 mg Q12H PRN PO 12/03/16 07:00 12/14/16 09:58 (Dulcolax Supp) 10 mg DAILY PRN RECTAL 12/03/16 07:00 12/09/16 12:19 (Lactulose Liq) 30 ml DAILY PRN PO 12/03/16 07:00 12/09/16 05:11 (NS Flush) 2 ml UNSCH PRN IV FLUSH 12/03/16 12:30 Sodium Chloride 2 ml 2 ml BID IV FLUSH 12/03/16 21:00 12/08/16 19:41 (Ancef 2 Gm Premix) 50 ml @ 100 mls/hr Q8H IV 12/03/16 13:00 12/14/16 04:33 (Narcan Inj) 0.4 mg UNSCH PRN IV 12/03/16 17:00 (Morphine 1 Mg/ ml SENIOR SQL DEVELOPER) 30 mg UNSCH IV 12/03/16 17:00 12/13/16 23:56 SENIOR SQL DEVELOPER Dosage Infused (Pha) 1 Q8HR .XX 12/03/16 22:00 12/14/16 06:00 (Catapres) 0.1 mg Q6H PRN PO 12/03/16 17:15 (Lovenox Inj) 40 mg Q24H SQ 12/07/16 20:00 12/13/16 20:17 Urinary Catheter: No Vascular Central Line Catheter: No A/P Problem List: (1) Open fracture of left foot ICD Code: S92.902B Status: Acute Assessment and Plan 21 year-old man with Left foot open lisfranc fracture/dislocation with dorsal degloving injury and dorsalis pedis artery injury -s/p staged I&D with application of external fixation left foot and wound vac. - Wound culture positive for bacillus species not Anthracis; the patient was started on IV antibiotics, Cefazolin 2gm IV q8h and Gentamicin 80mg IV q8h. - Follow up on intraoperative wound cultures. - NWB left lower extremity - Pain management with Morphine SENIOR SQL DEVELOPER -SP incision drainage debridement with helene of Ex Fix right foot, wound vac application. - 12/03, 12/05, 12/08, 12/11 -Initial wound culture is growing bacillus species. ID consulted - Thought to be a contaminant. Gentamycin discontinued. Recommended continuation of IV cefazolin. - Discussed with Dr Ochoa - Vascular surgery consulted for further management. - Vascular surgery recommends graft to the dorsum of the foot, however and the ways could be done at this institution. -The patient underwent an incision drainage with left wound VAC placement today. As per podiatry the plan is to await cultures and possible integra graft with wound vac change and external fixator adjustment on /Sunday this week. Will discuss further treatment vs transfer for advanced plastics procedures based on cultures and tissue viability later this week. - Discussed the case with Dr. Doyle. She has found an accepting physician at [facility] for the patient to be transferred for further management. Will DC SENIOR SQL DEVELOPER pump with IV morphine and place on oral antibiotics with IV morphine for breakthrough pain. Will also DC on oral Keflex. Leukocytosis -Likely due to stress. Resolved. Constipation -Likely secondary to lack of mobilization and narcotic pain medication use. Continue senna, Colace. Discussed with RN. She will administered milk of magnesia and lactulose. Dulcolax suppository is available for severe constipation. -Constipation resolved. DVT prophylaxis - SCD/YELENA, Will place on Lovenox SQ - Caprini score of 8 with a VTE risk of 6 % Discharge Planning Transfer to [facility] when bed available. manager strategy to assist. Mundo Hartmann MD Dec 14, 2016 11:14
[2016-12-14] MEDS ORDERED: ENOX40P SQ (11:17)
[2016-12-14] MEDS ORDERED: CEPH-460 PO (11:17)
[2016-12-14] MEDS ORDERED: SENN1TAB PO (11:18)
[2016-12-14] MEDS ORDERED: ACET1TAB86 PO (11:18)
--- NOTE | 2016-12-14 11:19 | HHI.DCPOC ---
Discharge Care Plan Diagnosis: (1) Open fracture of left foot (2) Constipation Goals to Promote Your Health * To prevent worsening of your condition and complications * To maintain your health at the optimal level Directions to Meet Your Goals Take your medications as prescribed Follow your dietary instruction Follow activity as directed Keep your appointments as scheduled Take your immunizations and boosters as scheduled If your symptoms worsen call your PCP, if no PCP go to Urgent Care Center or Emergency Room Smoking is Dangerous to Your Health. Avoid second hand smoke Call the 24-hour hour crisis hotline for domestic abuse at Mundo Hartmann MD Dec 14, 2016 11:19
[2016-12-14] MEDS ORDERED: PERC5TAB12 PO (11:22)
[2016-12-14] MEDS ORDERED: MORPHINE SULFATE 4 MG/ML INJ IV PUSH PRN (11:30)
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
[2016-12-14 12:00] VITALS: BP 116/69; PULSE 82; RESP 18; TEMP 97.6; O2SAT 96
[2016-12-14] MEDS: oxyCODONE/ACETAMINOPHEN 5 MG/325 MG TAB PO PRN ×2 (12:58→18:11)
[2016-12-14 16:00] VITALS: BP 113/65; PULSE 74; RESP 18; TEMP 97.7; O2SAT 96
== END 2016-12-14 19:00 | disposition short-term general hospital (02) | DRG 464 ==
LOC: PHOR 02:37 → NEDA 06:42 → NEDH 12:26 → N06A 15:19
PROVIDERS: ADMIT Hospitalist; ATTEND Hospitalist
PROC: 04Q Lower Arteries, Repair (ICD-10-PCS; 2016-12-03)
PROC: 0SH Lower Joints, Insertion (ICD-10-PCS; 2016-12-03)
PROC: 0QHM05Z Insertion of External Fixation Device into Left Tarsal, Open Approach (ICD-10-PCS; principal; 2016-12-03 09:36)
PROC: 0JDR0ZZ Extraction of Left Foot Subcutaneous Tissue and Fascia, Open Approach (ICD-10-PCS; 2016-12-05)
PROC: 0JBR0ZZ Excision of Left Foot Subcutaneous Tissue and Fascia, Open Approach (ICD-10-PCS; 2016-12-08)
PROC: 0JBR0ZZ Excision of Left Foot Subcutaneous Tissue and Fascia, Open Approach (ICD-10-PCS; 2016-12-11)
DX: S93.325A Dislocation of tarsometatarsal joint of left foot, initial encounter (principal); S95.012A Laceration of dorsal artery of left foot, initial encounter; S82.52XB Displaced fracture of medial malleolus of left tibia, initial encounter for open fracture type I or II; S92.02 Fracture of anterior process of calcaneus; V43.52XA Car driver injured in collision with other type car in traffic accident, initial encounter; K59.00 Constipation, unspecified; R03.0 Elevated blood-pressure reading, without diagnosis of hypertension
CPT/HCPCS: 71010; 73630; 73700; 80048; 80053; 81001; 85025; 85027; 85610; 85730; 87015; 87070; 87102; 87116; 87205; 87206; C1713; C1757; C9113; J0131; J0690; J1100; J1170; J1580; J1644; J1650; J2250; J2270; J2370; J2405; J3010; J7030; J7120